=== PATIENT | female | born 1960 | race Caucasian/White ===

== ENCOUNTER 2017-01-17 00:32 | Emergency (ER) | payer OTHER ==
[2017-01-17 00:41] VITALS: BP 185/88
[2017-01-17] MEDS ORDERED: NAPROXEN 500 MG TABLET PO ONE (01:15)
[2017-01-17] MEDS ORDERED: PENICILLIN V K 250 MG TABLET. PO ONE (01:15)
[2017-01-17] MEDS ORDERED: oxyCODONE/APAP 7.5/325 1 TAB TABLET ONE (01:15)
[2017-01-17] MEDS ORDERED: NAPROXEN 500 MG TABLET ONE (01:15)
[2017-01-17] MEDS ORDERED: PENICILLIN V K 250 MG TABLET. ONE (01:15)
[2017-01-17] MEDS ORDERED: oxyCODONE/APAP 7.5/325 1 TAB TABLET PO ONE (01:15)
[2017-01-17] MEDS ORDERED: NAPR500T PO (01:17)
[2017-01-17] MEDS ORDERED: BENZ9GEL MM (01:17)
[2017-01-17] MEDS ORDERED: PENI500T PO (01:17)
--- NOTE | 2017-01-17 01:32 | ED.ADGEN ---
Past History Past Medical History: No Pertinent History Past Surgical History: Other Alcohol Use: None Drug Use: None Adult General HPI HPI Patient is a 56-year-old woman, with no significant past medical history, who presents to the emergency department with complaint of dental pain. Patient states that she had a partial root canal performed by her dentist on her right lower jaw, however due to difficulty with obtaining appropriate anesthesia, and some complications, she was referred to an oral surgeon. She states that he for she was able to follow-up with oral surgeon however, her son was involved in a serious motor vehicle accident in [place], and she has spent her time with him since this occurred. Her initial dental treatment was in October. She states that she began experiencing pain earlier today. She states that she has not yet made an appointment with the oral surgeon whom she was referred by her dentist. Patient denies any fevers or chills, any chest pain or shortness breath, any difficulty swallowing or breathing, any discharge or drainage in the mouth. No neck pain. No swelling of the face or neck. No difficulty with speech. No new injuries or inciting events. Pain is isolated to the posterior aspect of the right lower jaw. Review of Systems Review of Systems Constitutional: Denies fever or chills [] Eyes: Denies change in visual acuity, redness, or eye pain [] HENT: Denies nasal congestion or sore throat. Right lower jaw pain [] Respiratory: Denies cough or shortness of breath [] Cardiovascular: No additional information not addressed in HPI [] GI: Denies abdominal pain, nausea, vomiting, bloody stools or diarrhea [] : Denies dysuria or hematuria [] Musculoskeletal: Denies back pain or joint pain [] Integument: Denies rash or skin lesions [] Neurologic: Denies headache, focal weakness or sensory changes [] Endocrine: Denies polyuria or polydipsia [] Current Medications Current Medications Current Medications Medications (Trade) Dose Ordered Sig/Lev Start Time Stop Time Status Last Admin Dose Admin Naproxen (Naprosyn) 500 mg 1X ONCE 01/17/17 01:15 01/17/17 01:16 UNV 01/17/17 01:15 500 MG Oxycodone/ Acetaminophen (Percocet 7.5/ 325) 1 tab 1X ONCE 01/17/17 01:15 01/17/17 01:16 UNV 01/17/17 01:15 1 TAB Penicillin V Potassium (Veetid) 500 mg 1X ONCE 01/17/17 01:15 01/17/17 01:16 UNV 01/17/17 01:15 500 MG Allergies Allergies Allergies Coded Allergies Type Severity Reaction Last Updated Verified No Known Allergies Allergy Unknown 01/17/17 Yes Physical Exam Physical Exam Constitutional: Well developed, well nourished, no acute distress, non-toxic appearance. [] HENT: Normocephalic, atraumatic, bilateral external ears normal, oropharynx moist, no oral exudates, nose normal. Patient with dental caries, and absence of premolars, patient with tenderness palpation and mild surrounding gum irritation at tooth number #32, very filling noted to be in place, patient with apical tenderness, no abscess formation, induration, swelling, brawny edema or involvement of tongue or surrounding mucus membranes identified. No lymphadenopathy, no neck tenderness, no facial swelling or tenderness. Eyes: PERRLA, EOMI, conjunctiva normal, no discharge. [] Neck: Normal range of motion, no tenderness, supple, no stridor. [] Cardiovascular:Heart rate regular rhythm, no murmur, S1, S2, no rubs or gallops. [] Lungs & Thorax: Bilateral breath sounds clear to auscultation, no wheezing, rhonchi, rales. [] Abdomen: Bowel sounds normal, soft, no tenderness, no masses, no pulsatile masses. [] Neurologic: Alert and oriented X 3, normal motor function, normal sensory function, no focal deficits noted. [] Psychologic: Affect normal, judgement normal, mood normal. [] Current Patient Data Vital Signs Vital Signs Date Time Temp Pulse Resp B/P (MAP) Pulse Ox O2 Delivery O2 Flow Rate FiO2 01/17/17 01:15 20 98 Room Air 01/17/17 00:41 98.1 74 EKG EKG Not indicated. [] Radiology/Procedures Radiology/Procedures [] Course & Med Decision Making Course & Med Decision Making Pertinent Labs and Imaging studies reviewed. (See chart for details) Patient well-appearing, pain isolated to tooth #32, where patient is noted to have a temporary filling in place. Mild surrounding irritation to the gum, patient does have gingivitis, there is no evidence of abscess formation or acute infection. I did discuss with patient that I will be unable to provide much assistance for her tonight, as she will require dental extraction for definitive treatment. Thus dental block, patient states that she required "so much medication it made me sick", with inadequate anesthesia established by her primary dentist, therefore will forego attempts a dental block at this time. Patient states that she understands, and has plans to follow-up with the oral surgeon to she was referred. She does have his card at home. Patient is agreeable to trialing a single dose of Percocet in the ED, along with naproxen, and penicillin, to be discharged home with a prescription for penicillin, naproxen, to continue Anbesol which she states she was using without much success. No indication requiring additional imaging or evaluation at this time. Patient tolerated oral medications the ED without issue, was given clear and detailed return instructions with which she voiced understanding and agreement. Importance of following up tomorrow again discussed, patient discharged home in stable condition with her family with plan and precautions as above. Final Impression Final Impression [] Problems: Dragon Disclaimer Dragon Disclaimer This electronic medical record was generated, in whole or in part, using a voice recognition dictation system. Departure: Impression: Primary Impression: Pain due to dental caries Disposition: HOME, SELF-CARE Condition: IMPROVED Scripts Benzocaine (ANBESOL) 9 Gm Gel..gram. 9 GM MM PRN QID Y for PAIN, #1 EACH Prov: ROBERT CARRION DO 01/17/17 Naproxen (NAPROSYN) 500 Mg Tablet 1 TAB PO BID Y for PAIN, #10 TAB 1 Refill Prov: ROBERT CARRION DO 01/17/17 Penicillin V Potassium (PENICILLIN V POTASSIUM) 500 Mg Tablet 1 TAB PO QID, #40 TAB Prov: ROBERT CARRION DO 01/17/17 ROBERT CARRION DO Jan 17, 2017 01:32
== END 2017-01-17 01:30 | disposition home or self-care (01) ==
LOC: ER 00:32
DX: K02.9 Dental caries, unspecified (principal)
CPT/HCPCS: 99284

== ENCOUNTER 2017-06-25 17:53 | Emergency (ER) | payer OTHER ==
[~2017-06-25] VITALS: Ht 157.5 cm; Wt 70.3 kg
[~2017-06-25 17:53] MED LIST: BENZ9GEL MM; NAPR-683 PO; PENI500T PO
[2017-06-25] MEDS ORDERED: KETOROLAC 30 MG/ML VIAL. IM ONE (18:15)
[2017-06-25] MEDS ORDERED: ONDANSETRON ODT 4 MG TAB.RAPDIS PO ONE (18:15)
[2017-06-25] MEDS ORDERED: HYDROmorphone PF 1 MG/ML DISP.SYRIN IM ONE (18:30)
[2017-06-25] MEDS ORDERED: TRAM-48 PO (19:14)
[2017-06-25] MEDS ORDERED: NAPR500T4 PO (19:14)
--- NOTE | 2017-06-25 19:14 | PHYS DOC ---
Past History Past Medical History: No Pertinent History Past Surgical History: Other Alcohol Use: None Drug Use: None Adult General Chief Complaint Chief Complaint: HIP PAIN HPI HPI Patient is a 56-year-old female who presents here today complaining of left hip pain for "quite a while now ". Patient reports that she was diagnosed with bursitis and sciatica to her left hip over the last several days her pain is been getting much worse. Patient denies any recent trauma. Patient denies any recent fevers shakes chills nausea vomiting diarrhea cough cold rhinorrhea. Patient reports she has no past medical history of high blood pressure diabetes lung liver or kidney problems. Patient reports no tobacco alcohol. Patient does not smoke drink or do any drugs. Patient is allergic to any medications. Patient reports that she has had a right total hip replacement in 2013 with recent revision. Patient denies any increased exertion or trauma. Patient reports that she has been seeing her physician secondary to discomfort and he has been prescribed gabapentin to her without any significant improvement. Patient presents ER today seeking assistance with her discomfort until she can follow up further with her primary care physician. Review of systems: Constitutional: Denies fever or chills Eyes: Denies change in visual acuity, redness, or eye pain HENT: Denies nasal congestion or sore throat Respiratory: Denies cough or shortness of breath All other systems were reviewed and found to be within normal limits, except as documented in this note. Physical exam: Constitutional: Well developed, well nourished, no acute distress, non-toxic appearance. HENT: Normocephalic, atraumatic, bilateral external ears normal, nose normal. Eyes: PERRLA, EOMI, conjunctiva normal, no discharge. Neck: Normal range of motion, no tenderness, supple, no stridor. Cardiovascular: Heart rate regular rhythm, Lungs & Thorax: Bilateral breath sounds clear to auscultation Abdomen: No abdominal distention. Skin: Warm, dry, no erythema, no rash. Back: Normal spinal curvature Extremities: No tenderness, no cyanosis, no clubbing, ROM intact, no edema. Neurologic: Alert and oriented X 3, normal motor function, normal sensory function, no focal deficits noted. Psychologic: Affect normal, judgement normal, mood normal. Patient's ER physical exam was most remarkable: No hernia defect. Patient is tenderness to palpation to her left groin area patient's full range of motion to her left hip however she does appear to have discomfort with any flexion abduction or external rotation. There is no warmth or erythema. There is no rash noted. There is no deformity. Left hip as interpreted by ER physician reveals: No acute fracture or dislocation. Assessment and plan: 1. 48-year-old female who presents here today with left hip pain. Patient is currently on Neurontin without any improvement. Patient is requesting assistance with pain management until she is able see her primary care physician. Patient has no recent trauma. Patient's x-ray of her left hip reveals no fracture or dislocation. There are no lytic lesions identified. There does seem to be decreased joint space consistent with arthritis. Patient will be given pain medicines in the ED and will be discharged home with analgesic medication to assist her until she is able follow-up for further outpatient evaluation. Current Medications Current Medications Current Medications Medications (Trade) Dose Ordered Sig/Lev Start Time Stop Time Status Last Admin Dose Admin Hydromorphone HCl (Dilaudid) 0.5 mg 1X ONCE 06/25/17 18:30 06/25/17 18:31 DC 06/25/17 18:36 0.5 MG Ketorolac Tromethamine (Toradol) 30 mg 1X ONCE 06/25/17 18:15 06/25/17 18:17 DC 06/25/17 18:35 30 MG Ondansetron HCl (Zofran Odt) 4 mg 1X ONCE 06/25/17 18:15 06/25/17 18:17 DC 06/25/17 18:35 4 MG Allergies Allergies Allergies Coded Allergies Type Severity Reaction Last Updated Verified No Known Allergies Allergy Unknown 01/17/17 Yes Current Patient Data Vital Signs Vital Signs Date Time Temp Pulse Resp B/P (MAP) Pulse Ox O2 Delivery O2 Flow Rate FiO2 06/25/17 18:36 16 99 06/25/17 18:06 98.0 79 Room Air EKG EKG [] Radiology/Procedures Radiology/Procedures [] Course & Med Decision Making Course & Med Decision Making Pertinent Labs and Imaging studies reviewed. (See chart for details) [] Dragon Disclaimer Dragon Disclaimer This electronic medical record was generated, in whole or in part, using a voice recognition dictation system. Departure Departure: Impression: Primary Impression: Hip pain, left Disposition: HOME, SELF-CARE Condition: IMPROVED Referrals: MARIANELA MORENO (PCP) Patient Instructions: Arthritis, Nonspecific, Groin Strain, Hip Pain Scripts Tramadol Hcl (ULTRAM) 50 Mg Tablet 50 MG PO PRN Q6HRS Y for PAIN, #20 TAB Prov: ABELARDO IVERSON MD 06/25/17 Naproxen (NAPROXEN) 500 Mg Tablet 1 TAB PO BID, #20 TAB Prov: ABELARDO IVERSON MD 06/25/17 ABELARDO IVERSON MD Jun 25, 2017 19:14
[2017-06-25 19:36] VITALS: BP 134/80
--- NOTE | 2017-06-26 08:19 | RAD ---
Pelvis and two-view left hip History: Leg pain AP view of the pelvis obtained as well as AP and frog-leg views left hip There is been prior right hip total arthroplasty. There is deformity of the inferior pubic ramus and the right consistent with old trauma. A left femoral acetabular relationship is normal.. Impression: No acute findings.
== END 2017-06-25 19:37 | disposition home or self-care (01) ==
LOC: ER 17:53
DX: M25.552 Pain in left hip (principal); Z96.641 Presence of right artificial hip joint
CPT/HCPCS: 73502; 96372; 99284; J1170; J1885; Q0162

== ENCOUNTER 2017-10-14 07:33 | Emergency (ER) | payer OTHER ==
[~2017-10-14] VITALS: Ht 157.5 cm; Wt 79.2 kg
[~2017-10-14 07:33] MED LIST changes: +NAPR-514 PO; +TRAM-48 PO
[2017-10-14] MEDS ORDERED: IV NORMAL SALINE 1,000ML 1,000 ML IV SCH (07:46)
[2017-10-14] MEDS ORDERED: 0.9 % SODIUM CHLORIDE 10 ML DISP.SYRIN. IV PRN (08:00)
--- NOTE | 2017-10-14 08:00 | PHYS DOC ---
Past History Past Medical History: No Pertinent History, Depression, Hypertension Past Surgical History: Other Additional Past Surgical Histo: knee surgery, right hip replacement 2 Smoking: Non-smoker Alcohol Use: Occasionally Drug Use: None Adult General Chief Complaint Chief Complaint: FLANK PAIN [facility] HPI Patient is a pleasant 57-year-old female with a known history of hypertension and depression on medications presents with left flank pain that began as a dull ache 1 week ago and is progressively gotten worse. Patient admits she noted some mild hematuria with some increasing darkness to her urine. She began to take cranberry juice in an effort to treat the symptoms. Pain is just gotten progressively worse it is in the left flank with some radiation to the lower portion of left flank. It is described as sharp and stabbing with a dull ache is residual hard to get comfortable from. Patient admits to no fevers, no UTI symptoms, no nausea no vomiting or diarrhea just she cannot comfortable. Nothing really makes it worse or better. Does have a history of sciatica but this feels different. Patient denies any trauma, denies any travel outside the country. Patient denies any rashes, weight loss, night sweats Review of Systems Review of Systems Constitutional: Denies fever or chills [] Eyes: Denies change in visual acuity, redness, or eye pain [] HENT: Denies nasal congestion or sore throat [] Respiratory: Denies cough or shortness of breath [] Cardiovascular: No additional information not addressed in HPI [] GI: Positive for left flank pain negative for nausea, vomiting, diarrhea, loose stools. : Positive for hematuria and dark urine negative for dysuria urgency or frequency Musculoskeletal: Denies back pain or joint pain [] Integument: Denies rash or skin lesions [] Neurologic: Denies headache, focal weakness or sensory changes [] Endocrine: Denies polyuria or polydipsia [] All other systems were reviewed and found to be within normal limits, except as documented in this note. Current Medications Current Medications Current Medications Medications (Trade) Dose Ordered Sig/Lev Start Time Stop Time Status Last Admin Dose Admin Morphine Sulfate (Morphine 4mg Syringe) 4 mg PRN Q15MIN PRN 10/14/17 08:00 10/15/17 07:59 Ondansetron HCl (Zofran) 4 mg 1X ONCE 10/14/17 08:15 10/14/17 08:16 Sodium Chloride (Normal Saline Flush) 10 ml QSHIFT PRN 10/14/17 08:00 Allergies Allergies Allergies Coded Allergies Type Severity Reaction Last Updated Verified No Known Allergies Allergy Unknown 01/17/17 Yes Physical Exam Physical Exam Constitutional: Well developed, well nourished, no acute distress, non-toxic appearance. [] HENT: Normocephalic, atraumatic, bilateral external ears normal, oropharynx dry mucous membranes, no oral exudates, nose normal. [] Eyes: PERRLA, EOMI, conjunctiva normal, no discharge. [] Neck: Normal range of motion, no tenderness, supple, no stridor. [] Cardiovascular:Heart rate regular rhythm, no murmur [] Lungs & Thorax: Bilateral breath sounds clear to auscultation [] Abdomen: Bowel sounds normal, soft, no tenderness, no masses, no pulsatile masses. Slight tenderness to the left flank no obvious signs of trauma or ecchymoses. [] Skin: Warm, dry, no erythema, no rash. [] Back: No tenderness, slight CVA tenderness on the left. [] Extremities: No tenderness, no cyanosis, no clubbing, ROM intact, no edema. [] Neurologic: Alert and oriented X 3 Psychologic: Affect normal, judgement normal, mood normal. [] EKG EKG []EKG read by me at 8:08 AM dosage heart rate of 87 normal sinus rhythm there is a P wave that is normal there is QRS patient has a CA interval of 142 which is normal, QRS width of 100 which is normal, QTC is 472 which is normal for age may be mildly prolonged. Radiology/Procedures Radiology/Procedures [] [address] [place] [id number] IMAGING REPORT Signed PATIENT: REGGIE NGUYEN ACCOUNT: [id number] : 1960 LOCATION: ER AGE: 57 SEX: F EXAM STATUS: REG ER ORD. PHYSICIAN: REZA MELISSA MD REASON: flank pain PROCEDURE: CT ABDOMEN PELVIS WO CONTRAST CT study of the abdomen and pelvis without contrast Clinical indications: Left flank pain for 3 days radiating into the left lower quadrant. Hematuria. History of hysterectomy in 2009. PQRS compliance Statement One or more of the following individualized dose reduction techniques were utilized for this study: 1. Automated exposure control 2. Adjustment of the mA and/or kV according to patient size 3. Use of iterative reconstruction technique COMPARISON: None available. FINDINGS: Hepatic cysts are seen. The spleen is not enlarged. The spleen is homogeneous. 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 The gallbladder appears normal. No extrahepatic biliary ductal dilatation is seen. No adrenal mass is evident. A left renal cyst is seen measuring 3 cm. Punctate left renal stone is seen. Mild left-sided hydronephrosis is seen. This is due to 3 small stones within the proximal left ureter measuring 2 mm in size. These are seen within the proximal left ureter just distal to the UPJ. No stone of the upper urinary tract is seen on the right side. There is a small cyst of the right kidney. The distal ureters and urinary bladder are partially obscured due to streaking artifact from a right hip prosthesis. No focal aneurysmal dilatation of the abdominal aorta is seen. No enlarged abdominal or pelvic lymphadenopathy is evident. Sigmoid diverticulosis is seen without diverticulitis. No obstructive bowel pattern is evident. No free air or free fluid or mesenteric edema is seen. No lung base consolidation is evident. Nonunited old fracture of the inferior pubic ramus is seen on the right side. No osteolytic process is seen. 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 IMPRESSION: Mild left-sided hydronephrosis due to 3 small 2 mm stones within the proximal left ureter just distal to the UVJ. Electronically signed by: Devin Norton MD (10/14/2017 8:54 AM) [id number] DICTATED AND SIGNED BY: DEVIN NORTON MD DATE: 10/14/17 0841 CC: REZA MELISSA MD; MARIANELA MORENO ~ Course & Med Decision Making Course & Med Decision Making Pertinent Labs and Imaging studies reviewed. (See chart for details) []He is a pleasant 57-year-old female presents with left flank pain has become briefly gotten worse in the last week. She has a history of dark urine with some mild hematuria differential diagnosis includes but not limited to kidney stone, pyelonephritis, UTI, rhabdomyolysis, lower back pain, herpes zoster, : Plan is to complete a CT with contrast of the abdomen and pelvis, click the urine, CBC, CMP provide some discomfort relief Laboratory Tests Test 10/14/17 08:03 White Blood Count 8.9 x10^3/uL (4.0-11.0) Red Blood Count 4.96 x10^6/uL (3.50-5.40) Hemoglobin 13.9 g/dL (12.0-15.5) Hematocrit 41.7 % (36.0-47.0) Mean Corpuscular Volume 84 fL (79-100) Mean Corpuscular Hemoglobin 28 pg (25-35) Mean Corpuscular Hemoglobin Concent 33 g/dL (31-37) Red Cell Distribution Width 14.6 % (11.5-14.5) H Platelet Count 312 x10^3/uL (140-400) Neutrophils (%) (Auto) 57 % (31-73) Lymphocytes (%) (Auto) 29 % (24-48) Monocytes (%) (Auto) 6 % (0-9) Eosinophils (%) (Auto) 7 % (0-3) H Basophils (%) (Auto) 1 % (0-3) Neutrophils # (Auto) 5.1 x10^3uL (1.8-7.7) Lymphocytes # (Auto) 2.5 x10^3/uL (1.0-4.8) Monocytes # (Auto) 0.5 x10^3/uL (0.0-1.1) Eosinophils # (Auto) 0.7 x10^3/uL (0.0-0.7) Basophils # (Auto) 0.1 x10^3/uL (0.0-0.2) Sodium Level 142 mmol/L (136-145) Potassium Level 3.9 mmol/L (3.5-5.1) Chloride Level 104 mmol/L (98-107) Carbon Dioxide Level 29 mmol/L (21-32) Anion Gap 9 (6-14) Blood Urea Nitrogen 16 mg/dL (7-20) Creatinine 0.8 mg/dL (0.6-1.0) Estimated GFR (Cockcroft-Gault) 73.4 Glucose Level 97 mg/dL (70-99) Calcium Level 9.0 mg/dL (8.5-10.1) Total Bilirubin 0.6 mg/dL (0.2-1.0) Direct Bilirubin 0.1 mg/dL (0.0-0.2) Aspartate Amino Transferase (AST) 15 U/L (15-37) Alanine Aminotransferase (ALT) 18 U/L (14-59) Alkaline Phosphatase 109 U/L (46-116) Creatine Kinase 64 U/L (26-192) Creatine Kinase MB (Mass) < 0.5 ng/mL (0.0-3.6) Creatine Kinase MB Relative Index 0.8 % (0-4) Troponin I Quantitative < 0.017 ng/mL (0-0.055) Total Protein 7.2 g/dL (6.4-8.2) Albumin 3.6 g/dL (3.4-5.0) Lipase 259 U/L (73-393) Patient's urinalysis is still pending at this time time is now 9:15 AM CBC, CMP, lipase and troponin are all negative, patient is resting quietly waiting for the past results. Since urinalysis shows some red blood cells and some white blood cells with occasional epithelia cells and a few bacteria this is likely not an infected stone. Patient has negative white count CBC is unremarkable signs of infection. CT scan results demonstrate 2 small 2 mm left ureteral stones with no evidence of inflammation but there is some mild hydronephrosis. Given patient's kidney stones and flank pain without fevers I will wait for the urinalysis to ensure that she's not having a UTI and infected kidney stone provider appropriate treatments and follow-up with urology. Impression: Left kidney stone Pretty Disclaimer [place] Disclaimer This electronic medical record was generated, in whole or in part, using a voice recognition dictation system. Departure Departure: Impression: Primary Impression: Kidney stone Disposition: 01 HOME, SELF-CARE Condition: STABLE Referrals: MARIANELA MORENO (PCP) Patient Instructions: Diet for Kidney Stones, Kidney Stones Additional Instructions: discharge: I've spoken with the patient and/or caregivers. I've explained the patient's condition, diagnosis and treatment plan based on information available to me at this time. I've answered the patient's and/or caregivers questions and addressed any concerns. The patient and/or caregivers have a good understanding the patient's diagnosis, condition and treatment plan as can be expected at this point. Vital signs have been stabilized. The patient's condition is stable for discharge from the emergency department. The patient will pursue further outpatient evaluation with her primary care provider or other designated consulting physician as outlined in the discharge instructions. Patient and/or caregivers are agreeable to this plan of care and follow-up instructions have been explained in detail. The patient and/or caregivers have received these instructions in written format and expressed understanding of these discharge instructions. The patient and her caregivers are aware that if any significant change in condition or worsening of symptoms should prompt him to immediately return to this of the closest emergency department. If an emergent department is not readily available I would encourage him to call 911. Scripts Ondansetron (ZOFRAN ODT) 4 Mg Tab.rapdis 1 TAB SL Q8HRS, #15 TAB Prov: REZA MELISSA MD 10/14/17 Naproxen Sodium (NAPROXEN SODIUM) 275 Mg Tablet 275 MG PO BID for 7 Days, #14 TAB Prov: REZA MELISSA MD 10/14/17 Hydrocodone Bit/Acetaminophen (HYDROCODONE-APAP 5-325 ) 1 Each Tablet 1 TAB PO PRN Q6HRS Y for PAIN for 5 Days, TAB 0 Refills Prov: REZA MELISSA MD 10/14/17 REZA MELISSA MD Oct 14, 2017 08:00
[2017-10-14] MEDS ORDERED: ONDANSETRON PF 4 MG/2 ML VIAL. IV ONE (08:15)
[2017-10-14 08:16] LABS: BASO # 0.1 x10^3/uL (0.0-0.2); BASO % 1 % (0-3); EOS # 0.7 x10^3/uL (0.0-0.7); EOS % 7 % (0-3); HEMATOCRIT 41.7 % (36.0-47.0); HEMOGLOBIN 13.9 g/dL (12.0-15.5); LYMPH # 2.5 x10^3/uL (1.0-4.8); LYMPH % 29 % (24-48); MEAN CORPUSCULAR HEMOGLOBIN 28 pg (25-35); MEAN CORPUSCULAR HGB CONC 33 g/dL (31-37); MEAN CORPUSCULAR VOLUME 84 fL (79-100); MONO # 0.5 x10^3/uL (0.0-1.1); MONO % 6 % (0-9); NEUT # 5.1 x10^3uL (1.8-7.7); NEUT % 57 % (31-73); PLATELET COUNT 312 x10^3/uL (140-400); RED BLOOD COUNT 4.96 x10^6/uL (3.50-5.40); RED CELL DISTRIBUTION WIDTH 14.6 % (11.5-14.5); WHITE BLOOD COUNT 8.9 x10^3/uL (4.0-11.0)
[2017-10-14] MEDS: MORPHINE SULFATE 4 MG/ML DISP.SYRIN. IV/SQ PRN ×2 (08:16→08:46)
[2017-10-14 08:54] LABS: ALBUMIN 3.6 g/dL (3.4-5.0); ALK PHOS 109 U/L (46-116); ALT (SGPT) 18 U/L (14-59); ANION GAP 9 (6-14); AST (SGOT) 15 U/L (15-37); BLOOD UREA NITROGEN 16 mg/dL (7-20); CARBON DIOXIDE 29 mmol/L (21-32); CHLORIDE 104 mmol/L (98-107); CREATININE 0.8 mg/dL (0.6-1.0); DIRECT BILIRUBIN 0.1 mg/dL (0.0-0.2); GFR 73.4; GLUCOSE 97 mg/dL (70-99); LIPASE 259 U/L (73-393); POTASSIUM 3.9 mmol/L (3.5-5.1); SODIUM 142 mmol/L (136-145); TOTAL BILIRUBIN 0.6 mg/dL (0.2-1.0); TOTAL PROTEIN 7.2 g/dL (6.4-8.2)
--- NOTE | 2017-10-14 08:57 | RAD ---
CT study of the abdomen and pelvis without contrast Clinical indications: Left flank pain for 3 days radiating into the left lower quadrant. Hematuria. History of hysterectomy in 2009. PQRS compliance Statement One or more of the following individualized dose reduction techniques were utilized for this study: 1. Automated exposure control 2. Adjustment of the mA and/or kV according to patient size 3. Use of iterative reconstruction technique COMPARISON: None available. FINDINGS: Hepatic cysts are seen. The spleen is not enlarged. The spleen is homogeneous. 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 The gallbladder appears normal. No extrahepatic biliary ductal dilatation is seen. No adrenal mass is evident. A left renal cyst is seen measuring 3 cm. Punctate left renal stone is seen. Mild left-sided hydronephrosis is seen. This is due to 3 small stones within the proximal left ureter measuring 2 mm in size. These are seen within the proximal left ureter just distal to the UPJ. No stone of the upper urinary tract is seen on the right side. There is a small cyst of the right kidney. The distal ureters and urinary bladder are partially obscured due to streaking artifact from a right hip prosthesis. No focal aneurysmal dilatation of the abdominal aorta is seen. No enlarged abdominal or pelvic lymphadenopathy is evident. Sigmoid diverticulosis is seen without diverticulitis. No obstructive bowel pattern is evident. No free air or free fluid or mesenteric edema is seen. No lung base consolidation is evident. Nonunited old fracture of the inferior pubic ramus is seen on the right side. No osteolytic process is seen. 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 IMPRESSION: Mild left-sided hydronephrosis due to 3 small 2 mm stones within the proximal left ureter just distal to the UVJ. Electronically signed by: David Norton MD (10/14/2017 8:54 AM) [id number]
[2017-10-14] MEDS ORDERED: ONDA4TAB10 SL (09:21)
[2017-10-14] MEDS ORDERED: NAPR275T59 PO (09:21)
[2017-10-14] MEDS ORDERED: HYDR-2758 PO (09:21)
[2017-10-14] MEDS ORDERED: HYDROmorphone PF 2 MG/ML VIAL IV ONE (10:00)
[2017-10-14 10:04] LABS: BACTERIA,URINE FEW /HPF (0-FEW); BILIRUBIN,URINE NEG (NEG); CLARITY,URINE CLOUDY; COLOR,URINE STRAW; GLUCOSE,URINE NEG (NEG); NITRITE,URINE NEG (NEG); RBC,URINE >40 /HPF (0-2); SQUAMOUS EPITHELIAL CELL,UR MOD /LPF; UROBILINOGEN,URINE 0.2 mg/dL (0.2 mg/dL); WBC,URINE OCC /HPF (0-4)
[2017-10-14 10:30] VITALS: BP 130/87
--- NOTE | 2017-10-14 13:01 | EKG ---
[address] [address] Test Date: 2017-10-14 Test Time: 08:08:32 Pat Name: REGGIE NGUYEN Department: Room: Gender: F [employer]er: LEELA : 1960 Requested By: REZA MELISSA Order Number: [id number] Reading MD: Liborio Perez MD Measurements Intervals [place] Rate: 87 P: 51 RI: 142 QRS: 15 QRSD: 100 T: 33 QT: 392 QTc: 472 Interpretive Statements SINUS RHYTHM Electronically Signed On 10-17-2017 14:09:29 CDT by Liborio Perez MD
== END 2017-10-14 10:47 | disposition home or self-care (01) ==
LOC: ER 07:33
DX: N20.0 Calculus of kidney (principal); I10 Essential (primary) hypertension; F32.9 Major depressive disorder, single episode, unspecified
CPT/HCPCS: 36415; 74176; 80048; 80076; 81001; 82553; 83690; 84484; 85025; 87086; 93005; 96361; 96374; 96375; 99285; J2270; J2405; J3010; J7030

== ENCOUNTER 2017-10-27 17:30 | Emergency (ER) | payer OTHER ==
[~2017-10-27] VITALS: Ht 157.5 cm; Wt 72.6 kg
[~2017-10-27 17:30] MED LIST changes: +HYDR-2758 PO; +NAPR275T59 PO; +ONDA4TAB10 SL
--- NOTE | 2017-10-27 17:43 | PHYS DOC ---
Past History Past Medical History: Depression, Hypertension, Kidney Stones Past Surgical History: Hip Replacement, Hysterectomy, Other Additional Past Surgical Histo: knee surgery, right hip replacement 2 Smoking: Non-smoker Alcohol Use: Occasionally Drug Use: None Adult General Chief Complaint Chief Complaint: ABDOMINAL PAIN [facility] HPI 57-year-old female patient states she she had left flank pain and was seen in this emergency room 2 weeks ago with diagnose of 3 small size kidney stones. Patient states she had pain off and on with intermittent episodes of hematuria for the last 2 weeks and today her pain became constant in the left flank with radiation to left lower quadrant as a sharp pain and rated her pain 9/10. Patient complaining of 8-9 episodes of nonbloody vomiting without diarrhea and fever and chills. Patient states she had hematuria this morning that resolved. Patient denies dysuria or frequency or decrease of urine output, chest pain, shortness of breath. Patient states she was not instructed to follow-up with a urologist. Patient states she had kidney stone 2 years ago that passed spontaneously without problem. Review of Systems Review of Systems Constitutional: Denies fever or chills [] Eyes: Denies change in visual acuity, redness, or eye pain [] HENT: Denies nasal congestion or sore throat [] Respiratory: Denies cough or shortness of breath [] Cardiovascular: No additional information not addressed in HPI [] GI: Reports abdominal pain, nausea, vomiting, denies bloody stools or diarrhea [ ] : Denies dysuria or frequency, reports flank pain and hematuria [] Musculoskeletal: Denies back pain or joint pain [] Integument: Denies rash or skin lesions [] Neurologic: Denies headache, focal weakness or sensory changes [] Endocrine: Denies polyuria or polydipsia [] All other systems were reviewed and found to be within normal limits, except as documented in this note. Allergies Allergies Allergies Coded Allergies Type Severity Reaction Last Updated Verified morphine Allergy Unknown Rash 10/27/17 Yes Physical Exam Physical Exam Constitutional: Well developed, well nourished, moderate distress, non-toxic appearance. [] HENT: Normocephalic, atraumatic, dry oral mucosa Eyes: PERRLA, EOMI, conjunctiva normal, no discharge. [] Neck: Normal range of motion, no tenderness, supple, no stridor. [] Cardiovascular: Tachycardia, no murmur [] Lungs & Thorax: Bilateral breath sounds clear to auscultation [] Abdomen: Bowel sounds normal, soft, left lower quadrant tenderness and guarding , no masses, no pulsatile masses. [] Skin: Warm, dry, no erythema, no rash. [] Back: No tenderness, left CVA tenderness[] Extremities: No tenderness, no cyanosis, no clubbing, ROM intact, no edema. [] Neurologic: Alert and oriented X 3, normal motor function, normal sensory function, no focal deficits noted. [] Psychologic: Affect normal, judgement normal, mood normal. [] EKG EKG [] Radiology/Procedures Radiology/Procedures [] [place] [id number] IMAGING REPORT Signed PATIENT: REGGIE NGUYEN ACCOUNT: [id number] : 1960 LOCATION: ER AGE: 57 SEX: F EXAM STATUS: REG ER ORD. PHYSICIAN: LOKI SON MD REASON: left flank pain PROCEDURE: CT ABDOMEN PELVIS WO CONTRAST CT ABDOMEN PELVIS WO CONTRAST Indication: LLQ Abdominal pain and left flank pain
Hx of kidney stones and appendectomy
Sent CT from 10/2017 for comparison
.. Exposure: One or more of the following individualized dose reduction techniques were utilized for this examination: 1. Automated exposure control 2. Adjustment of the mA and/or kV according to patient size 3. Use of iterative reconstruction technique. Comparison: October 14, 2017 Contrast: None Mild linear atelectasis or fibrosis in the lung bases. No evidence of pneumoperitoneum. Small low-density liver lesions are identified, appears similar as prior study. Spleen unremarkable. Area of fatty density in the pancreas, may represent a lipoma, unchanged. No acute peripancreatic inflammatory changes. No adrenal mass. Moderate left hydronephrosis and ureteric dilatation to the distal left ureter, where there is a 4 mm calculus. Inflammatory stranding around the left kidney, collecting system and left ureter could be postobstructive or due to superimposed acute inflammation or infection. There are a couple of additional calculi in the left renal pelvis and left renal lower pole. No evidence of right urolithiasis or obstruction. Note that the distal right ureter is obscured by metal artifact. Low-density lesion of the left kidney measures 6 Hounsfield units compatible with a cyst and is similar to the prior study. No calcified gallstone. The aorta is nonaneurysmal. Small retroperitoneal aortocaval lymph nodes are identified, likely reactive. No bowel obstruction. Mild retained stool throughout the colon. No evidence of acute colitis. Appendix is not confidently visualized. Low-density lesion identified in the right pelvis measures about 17 mm, was also seen previously but is slightly larger today. This may represent a small ovarian cyst. Pelvic structures are secured by artifact from a right hip replacement. Degenerative changes of the spine are again noted. IMPRESSION: 1. There is now a moderately obstructive calculus in the distal left ureter. There is moderate inflammatory type stranding around the left kidney, left ureter and left paracolic gutter could be postobstructive or due to a superimposed infection/pyelonephritis. A couple of additional calculi are seen in the left kidney. 2. Small low-density lesion of the right pelvis measures slightly larger, may represent an ovarian cyst. Pelvic ultrasound could further evaluate. Electronically signed by: Jim Fuentes MD (10/27/2017 6:48 PM) [facility] Course & Med Decision Making Course & Med Decision Making Pertinent Labs and Imaging studies are pending. Evaluation of patient in ER showed 57-year-old female patient presented to ER with episodes of nausea and vomiting and constant left flank pain with history of diagnosed UV junction several stone with marked moderate hydronephrosis 2 weeks ago in this hospital. Patient had tachycardia in moderate distress of pain with CVA and left lower quadrant tenderness. Labs and CT of abdomen and pelvis is pending. IV fluid, Zofran and fentanyl was ordered. Patient care transferred to Dr. De La Cruz at 1800. ER M.D. attending note Dr. Jim De La Cruz Care assumed by me at 1800. Upon my reevaluation patient's pain is well controlled and she is well-appearing in no acute distress. Exam is unremarkable except for mild left CVA tenderness with no focal abdominal or pelvic tenderness. Vital signs unremarkable. Toradol 15 mg IV added to regimen. Initial urinalysis clean catch specimen consistent with contamination so this was repeated with a straight catheter urinalysis negative for infection. Patient does have a mildly elevated white blood cell count 14.6 with no bands. She is nontoxic appearing with no fever and unremarkable vital signs. CT shows no evidence of the 2 mm stones which were in her proximal left ureter with mild Morrison previously, but there is evidence of a single 4 mm stone in the distal left ureter with moderate Morrison. Remainder of labs unremarkable. Patient hydrated in ED and her pain continues to be well controlled on multiple re- evaluations. History workup and results discussed with Dr. Delacruz, on-call for urology at [facility]. He is aware the history and findings and agrees with NSAIDs outpatient pain control and close follow-up in the office with him. He does request Flomax and a dose will be given in the ED. [Pack 4 Tylenol with codeine will be dispensed for the patient as well as a prescription for Bernard. Patient's were to take ibuprofen every 6 hours and use Bernard as needed for breakthrough pain. She will call urology at [phone] in the morning for an appointment. Patient is aware that if her symptoms persist or worsen urology will arrange for her to get in for an office visit more immediately. No further workup or treatment indicated at this time, Patient and significant other agree with outpatient follow-up and strict return precautions given Dragon Disclaimer Dragon Disclaimer This electronic medical record was generated, in whole or in part, using a voice recognition dictation system. Departure Departure: Impression: Primary Impression: Left flank pain Additional Impressions: Ureteral colic Ureteral stone Pelvic mass in female Disposition: 01 HOME, SELF-CARE Condition: IMPROVED Referrals: MARIANELA MORENO (PCP) DUC DELACRUZ MD Patient Instructions: Ureteral Colic Additional Instructions: As we discussed, you have a 4 mm kidney stone in your left ureter near your bladder. You have no evidence of infection in your urine. Rest and drink plenty of fluids. Take ibuprofen every 6 hours as needed for discomfort and then used Tylenol with Codeine or Bernard as prescribed , one pill every 4-6 hours as needed for any persistent pain uncontrolled by the anti-inflammatory medication ibuprofen. Take Flomax once a day as prescribed. Call the office of Dr. Duc Delacruz, the urologist, tomorrow morning at [phone] to arrange an appointment for the next 1-2 days. Clarify with office staff that the urologist offered to get you seen more immediately if your pain persists or has worsened. If necessary return to the emergency Department immediately for new severe or worsening symptoms There was an incidental finding on your CAT scan of what appeared to be a pelvic cyst on the right which is suspected to be a small ovarian cyst. Follow- up with your primary care physician and your [employer] [facility] doctor for further workup for definitive diagnosis and treatment as needed. Scripts Tamsulosin Hcl (FLOMAX) 0.4 Mg Cap.er.24h 1 CAP PO DAILY, #10 CAP 11 Refills Prov: JIM DE LA CRUZ MD 10/27/17 Hydrocodone Bit/Acetaminophen (NORCO 5-325 TABLET) 1 Each Tablet 1 TAB PO PRN Q6HRS Y for PAIN, #16 TAB 0 Refills Prov: JIM DE LA CRUZ MD 10/27/17 Problem Qualifiers LOKI SON MD Oct 27, 2017 17:43 JIM DE LA CRUZ MD Oct 27, 2017 20:51
[2017-10-27] MEDS ORDERED: 0.9 % SODIUM CHLORIDE 10 ML DISP.SYRIN. IV PRN (17:45)
[2017-10-27] MEDS ORDERED: ONDANSETRON PF 4 MG/2 ML VIAL. IV ONE (18:00)
[2017-10-27] MEDS ORDERED: IV NORMAL SALINE 1,000ML 1,000 ML IV SCH (18:00)
[2017-10-27 18:14] LABS: BASO # 0.1 x10^3/uL (0.0-0.2); BASO % 1 % (0-3); EOS % 0 % (0-3); HEMATOCRIT 37.9 % (36.0-47.0); HEMOGLOBIN 12.8 g/dL (12.0-15.5); LYMPH # 1.6 x10^3/uL (1.0-4.8); LYMPH % 11 % (24-48); MEAN CORPUSCULAR HEMOGLOBIN 29 pg (25-35); MEAN CORPUSCULAR HGB CONC 34 g/dL (31-37); MEAN CORPUSCULAR VOLUME 84 fL (79-100); MONO # 0.8 x10^3/uL (0.0-1.1); MONO % 6 % (0-9); NEUT % 83 % (31-73); PLATELET COUNT 333 x10^3/uL (140-400); RED CELL DISTRIBUTION WIDTH 14.2 % (11.5-14.5); WHITE BLOOD COUNT 14.6 x10^3/uL (4.0-11.0)
[2017-10-27 18:22] LABS: ALBUMIN 3.7 g/dL (3.4-5.0); ALBUMIN/GLOBULIN RATIO 0.9 (1.0-1.7); CALCIUM 9.1 mg/dL (8.5-10.1); CREATININE 1.4 mg/dL (0.6-1.0); GFR 38.5; POTASSIUM 3.5 mmol/L (3.5-5.1); TOTAL BILIRUBIN 0.8 mg/dL (0.2-1.0); TOTAL PROTEIN 7.6 g/dL (6.4-8.2)
--- NOTE | 2017-10-27 18:51 | RAD ---
CT ABDOMEN PELVIS WO CONTRAST Indication: LLQ Abdominal pain and left flank pain
Hx of kidney stones and appendectomy
Sent CT from 10/2017 for comparison
.. Exposure: One or more of the following individualized dose reduction techniques were utilized for this examination: 1. Automated exposure control 2. Adjustment of the mA and/or kV according to patient size 3. Use of iterative reconstruction technique. Comparison: October 14, 2017 Contrast: None Mild linear atelectasis or fibrosis in the lung bases. No evidence of pneumoperitoneum. Small low-density liver lesions are identified, appears similar as prior study. Spleen unremarkable. Area of fatty density in the pancreas, may represent a lipoma, unchanged. No acute peripancreatic inflammatory changes. No adrenal mass. Moderate left hydronephrosis and ureteric dilatation to the distal left ureter, where there is a 4 mm calculus. Inflammatory stranding around the left kidney, collecting system and left ureter could be postobstructive or due to superimposed acute inflammation or infection. There are a couple of additional calculi in the left renal pelvis and left renal lower pole. No evidence of right urolithiasis or obstruction. Note that the distal right ureter is obscured by metal artifact. Low-density lesion of the left kidney measures 6 Hounsfield units compatible with a cyst and is similar to the prior study. No calcified gallstone. The aorta is nonaneurysmal. Small retroperitoneal aortocaval lymph nodes are identified, likely reactive. No bowel obstruction. Mild retained stool throughout the colon. No evidence of acute colitis. Appendix is not confidently visualized. Low-density lesion identified in the right pelvis measures about 17 mm, was also seen previously but is slightly larger today. This may represent a small ovarian cyst. Pelvic structures are secured by artifact from a right hip replacement. Degenerative changes of the spine are again noted. IMPRESSION: 1. There is now a moderately obstructive calculus in the distal left ureter. There is moderate inflammatory type stranding around the left kidney, left ureter and left paracolic gutter could be postobstructive or due to a superimposed infection/pyelonephritis. A couple of additional calculi are seen in the left kidney. 2. Small low-density lesion of the right pelvis measures slightly larger, may represent an ovarian cyst. Pelvic ultrasound could further evaluate. Electronically signed by: Jim Fuentes MD (10/27/2017 6:48 PM) [facility]
[2017-10-27] MEDS ORDERED: KETOROLAC 15 MG/ML VIAL. IV ONE (19:00)
[2017-10-27 19:23] LABS: BILIRUBIN,URINE NEG (NEG); CLARITY,URINE CLOUDY; COLOR,URINE YELLOW; GLUCOSE,URINE NEG (NEG)
[2017-10-27 19:24] LABS: BACTERIA,URINE MOD /HPF (0-FEW); NITRITE,URINE NEG (NEG); RBC,URINE >40 /HPF (0-2); SQUAMOUS EPITHELIAL CELL,UR MOD /LPF; UROBILINOGEN,URINE 0.2 mg/dL (0.2 mg/dL)
[2017-10-27 20:08] VITALS: BP 141/70
[2017-10-27 20:11] LABS: BILIRUBIN,URINE NEG (NEG); CLARITY,URINE CLEAR; COLOR,URINE STRAW; GLUCOSE,URINE NEG (NEG); NITRITE,URINE NEG (NEG); UROBILINOGEN,URINE 0.2 mg/dL (0.2 mg/dL)
[2017-10-27 20:12] LABS: BACTERIA,URINE 0 /HPF (0-FEW); SQUAMOUS EPITHELIAL CELL,UR FEW /LPF
[2017-10-27] MEDS ORDERED: HYDR-971 PO (20:50)
[2017-10-27] MEDS ORDERED: TAMS0.4C97 PO (20:53)
[2017-10-27] MEDS ORDERED: TAMSULOSIN 0.4 MG CAP.ER.24H. PO ONE (21:00)
[2017-10-27] MEDS ORDERED: ACETAMINOPHEN/CODEINE 300/30MG 4TABLET STARTPACK. PO ONE (21:00)
== END 2017-10-27 21:04 | disposition home or self-care (01) ==
LOC: ER 17:30
DX: N23 Unspecified renal colic (principal); R19.00 Intra-abdominal and pelvic swelling, mass and lump, unspecified site; I10 Essential (primary) hypertension; F32.9 Major depressive disorder, single episode, unspecified; Z87.442 Personal history of urinary calculi; Z88.5 Allergy status to narcotic agent
CPT/HCPCS: 36415; 74176; 80053; 81001; 83690; 85025; 96361; 96374; 96375; 96376; 99285; J1885; J2405; J3010; J7030

== ENCOUNTER 2017-11-02 17:45 | Emergency (ER) | payer OTHER ==
[~2017-11-02] VITALS: Ht 157.5 cm; Wt 79.2 kg
[~2017-11-02 17:45] MED LIST changes: +HYDR-971 PO; +TAMS0.4C97 PO
--- NOTE | 2017-11-02 18:32 | ED.ADGEN ---
Past History Past Medical History: Depression, Hypertension, Kidney Stones Past Surgical History: Hip Replacement, Hysterectomy, Other Additional Past Surgical Histo: knee surgery, right hip replacement 2 Smoking: Non-smoker Alcohol Use: Rarely Drug Use: None Adult General Chief Complaint Chief Complaint " .. I was in here last week .. with kidney stones.. but I still hurt... and I am running a fever.." HPI HPI Patient is a 57 year old female who presents with above hx and complaints. Patient has history of previous stones. Patient reports that she has had increased pain on left flank. Patient not having episodes of fever of 102 at home. Patient complaining of chills and increased nausea.. Patient denies any history of immunosuppression. No history of travel or specific ill contacts. Patient normally follows at [place]. Patient states she's never had this much problem when passing her kidney stones in the past. Patient complaining poor intake because of nausea. Review of Systems Review of Systems Constitutional: History of fever and chills [] Eyes: Denies change in visual acuity, redness, or eye pain [] HENT: Denies nasal congestion or sore throat [] Respiratory: Denies cough or shortness of breath [] Cardiovascular: No additional information not addressed in HPI [] GI: History of left flank abdominal pain, nausea,. Denies vomiting, bloody stools or diarrhea [] : Denies dysuria or hematuria [] Musculoskeletal: Denies back pain or joint pain [] Integument: Denies rash or skin lesions [] Neurologic: Denies headache, focal weakness or sensory changes [] Endocrine: Denies polyuria or polydipsia [] All other systems were reviewed and found to be within normal limits, except as documented in this note. Family History Family History Noncontributory Current Medications Current Medications Current Medications Medications (Trade) Dose Ordered Sig/Lev Start Time Stop Time Status Last Admin Dose Admin Acetaminophen (Tylenol) 1,000 mg 1X ONCE 11/02/17 20:45 11/02/17 20:46 DC 11/02/17 20:26 1,000 MG Ceftriaxone Sodium 1 gm/ Sodium Chloride 50 ml @ 100 mls/hr 1X ONCE 11/02/17 19:00 11/02/17 19:29 DC 11/02/17 19:07 100 MLS/HR Ceftriaxone Sodium (Rocephin) 1 gm STK-MED ONCE 11/02/17 18:55 11/02/17 18:56 DC Fentanyl Citrate (Fentanyl 2ml Vial) 50 mcg 1X ONCE 11/02/17 22:00 11/02/17 22:01 DC 11/02/17 21:37 50 MCG Ketorolac Tromethamine (Toradol) 30 mg 1X ONCE 11/02/17 19:00 11/02/17 19:01 DC 11/02/17 19:02 30 MG Lactated Ringer's 1,000 ml @ 1,000 mls/hr Q1H 11/02/17 19:00 11/02/17 19:59 DC 11/02/17 19:06 1,000 MLS/HR Ondansetron HCl (Zofran) 8 mg 1X ONCE 11/02/17 19:00 11/02/17 19:01 DC 11/02/17 18:59 8 MG Sodium Chloride 50 ml @ As Directed STK-MED ONCE 11/02/17 18:55 11/02/17 18:56 DC Allergies Allergies Allergies Coded Allergies Type Severity Reaction Last Updated Verified morphine Allergy Intermediate Rash 11/02/17 Yes Physical Exam Physical Exam Constitutional: Moderately acute distress, ill in appearance. [] HENT: Normocephalic, atraumatic, bilateral external ears normal, oropharynx moist, no oral exudates, nose normal. [] Eyes: PERRLA, EOMI, conjunctiva normal, no discharge. [] Neck: Normal range of motion, no tenderness, supple, no stridor. [] Cardiovascular:Heart rate regular rhythm, no murmur [] Lungs & Thorax: Bilateral breath sounds clear to auscultation [] Abdomen: Bowel sounds decreased. Soft, left flank tenderness, no masses, no pulsatile masses. [] Obese.. Old surgical scar. Skin: Warm, dry, no erythema, no rash. [] Back: No tenderness, no CVA tenderness. [] Extremities: No tenderness, no cyanosis, no clubbing, ROM intact, no edema. [] Left sided psoas sign.Right hip scar. Neurologic: Alert and oriented X 3, normal motor function, normal sensory function, no focal deficits noted. [] Psychologic: Affect anxious, judgement normal, mood normal. [] Current Patient Data Vital Signs Vital Signs Date Time Temp Pulse Resp B/P (MAP) Pulse Ox O2 Delivery O2 Flow Rate FiO2 11/02/17 21:55 103 18 129/78 (95) 94 Room Air 11/02/17 17:58 100.6 Lab Results Laboratory Tests Test 11/02/17 18:45 White Blood Count 15.9 x10^3/uL (4.0-11.0) H Red Blood Count 4.35 x10^6/uL (3.50-5.40) Hemoglobin 12.2 g/dL (12.0-15.5) Hematocrit 36.5 % (36.0-47.0) Mean Corpuscular Volume 84 fL (79-100) Mean Corpuscular Hemoglobin 28 pg (25-35) Mean Corpuscular Hemoglobin Concent 34 g/dL (31-37) Red Cell Distribution Width 13.5 % (11.5-14.5) Platelet Count 365 x10^3/uL (140-400) Neutrophils (%) (Auto) 81 % (31-73) H Lymphocytes (%) (Auto) 9 % (24-48) L Monocytes (%) (Auto) 8 % (0-9) Eosinophils (%) (Auto) 2 % (0-3) Basophils (%) (Auto) 0 % (0-3) Neutrophils # (Auto) 12.8 x10^3uL (1.8-7.7) H Lymphocytes # (Auto) 1.5 x10^3/uL (1.0-4.8) Monocytes # (Auto) 1.2 x10^3/uL (0.0-1.1) H Eosinophils # (Auto) 0.2 x10^3/uL (0.0-0.7) Basophils # (Auto) 0.1 x10^3/uL (0.0-0.2) Segmented Neutrophils % 88 % (35-66) H Lymphocytes % 5 % (24-48) L Monocytes % 6 % (0-10) Eosinophils % 1 % (0-5) Platelet Estimate Increased (ADEQUATE) Large Platelets Occ Polychromasia Slight Ovalocytes Occ Schistocytes Occ Prothrombin Time 11.0 SEC (9.4-11.4) Prothrombin Time INR 1.1 (0.9-1.1) PTT 30 SEC (23-33) Urine Collection Type Unknown Urine Color Yellow Urine Clarity Clear Urine pH 5.5 Urine Specific [place] 1.025 Urine Protein 100 mg/dl (NEG-TRACE) Urine Glucose (UA) Neg mg/dL (NEG) Urine Ketones (Stick) >=160 mg/dL (NEG) Urine Blood Mod (NEG) Urine Nitrite Neg (NEG) Urine Bilirubin Neg (NEG) Urine Urobilinogen Dipstick 0.2 mg/dL (0.2 mg/dL) Urine Leukocyte Esterase Neg (NEG) Urine RBC Occ /HPF (0-2) Urine WBC Occ /HPF (0-4) Urine Squamous Epithelial Cells Occ /LPF Urine Bacteria 0 /HPF (0-FEW) Urine Mucus Mod /LPF Sodium Level 134 mmol/L (136-145) L Potassium Level 3.8 mmol/L (3.5-5.1) Chloride Level 99 mmol/L (98-107) Carbon Dioxide Level 25 mmol/L (21-32) Anion Gap 10 (6-14) Blood Urea Nitrogen 13 mg/dL (7-20) Creatinine 1.5 mg/dL (0.6-1.0) H Estimated GFR (Cockcroft-Gault) 35.5 Glucose Level 98 mg/dL (70-99) Lactic Acid Level 1.1 mmol/L (0.4-2.0) Calcium Level 8.6 mg/dL (8.5-10.1) Total Bilirubin 0.6 mg/dL (0.2-1.0) Direct Bilirubin 0.1 mg/dL (0.0-0.2) Aspartate Amino Transferase (AST) 11 U/L (15-37) L Alanine Aminotransferase (ALT) 14 U/L (14-59) Alkaline Phosphatase 102 U/L (46-116) Creatine Kinase 33 U/L (26-192) Troponin I Quantitative < 0.017 ng/mL (0-0.055) Total Protein 7.0 g/dL (6.4-8.2) Albumin 2.9 g/dL (3.4-5.0) L Lipase 53 U/L (73-393) L EKG EKG [] Radiology/Procedures Radiology/Procedures My interpretation of abdomen film shows no acute cardiopulmonary findings. No free air in the diaphragm. Increased stool throughout the colon. Findings of right hip replacement.[] The CT comparison to prior CT shows increased hydronephrosis.Minimal movement from prior exam. Does have findings of renal cyst which has now has findings of hemorrhage. See Formal report when available. Course & Med Decision Making Course & Med Decision Making Pertinent Labs and Imaging studies reviewed. (See chart for details). Discussed presentation, testing and treatment plan with Dr. Pinto. Will transferred to [facility] for urology consult and further tx. and eval. [] Final Impression Final Impression 1. Renal Stones Lt. 2. Hx. UTI 3. Fever[] 4. Possible urosepsis. 5. Leukocytosis 6. Elevated creatinine Problems: Dragon Disclaimer Dragon Disclaimer This electronic medical record was generated, in whole or in part, using a voice recognition dictation system. YARON MCKEON MD Nov 02, 2017 18:32
[2017-11-02] MEDS ORDERED: IV NORMAL SALINE 50ML 50 ML ONE (18:55)
[2017-11-02] MEDS ORDERED: cefTRIAXone SODIUM 1 GM VIAL IV ONE (18:55)
[2017-11-02] MEDS ORDERED: KETOROLAC 30 MG/ML VIAL. IV ONE (19:00)
[2017-11-02] MEDS ORDERED: IV RINGERS SOLUTION,LACTATED 1,000 ML IV SCH (19:00)
[2017-11-02] MEDS ORDERED: ONDANSETRON PF 4 MG/2 ML VIAL. IV ONE (19:00)
[2017-11-02 19:17] LABS: BASO # 0.1 x10^3/uL (0.0-0.2); BASO % 0 % (0-3); EOS # 0.2 x10^3/uL (0.0-0.7); EOS % 2 % (0-3); HEMATOCRIT 36.5 % (36.0-47.0); HEMOGLOBIN 12.2 g/dL (12.0-15.5); LYMPH # 1.5 x10^3/uL (1.0-4.8); LYMPH % 9 % (24-48); MEAN CORPUSCULAR HEMOGLOBIN 28 pg (25-35); MEAN CORPUSCULAR HGB CONC 34 g/dL (31-37); MEAN CORPUSCULAR VOLUME 84 fL (79-100); MONO # 1.2 x10^3/uL (0.0-1.1); MONO % 8 % (0-9); NEUT # 12.8 x10^3uL (1.8-7.7); NEUT % 81 % (31-73); PLATELET COUNT 365 x10^3/uL (140-400); RED BLOOD COUNT 4.35 x10^6/uL (3.50-5.40); RED CELL DISTRIBUTION WIDTH 13.5 % (11.5-14.5); WHITE BLOOD COUNT 15.9 x10^3/uL (4.0-11.0)
[2017-11-02 19:44] LABS: ALBUMIN 2.9 g/dL (3.4-5.0); BACTERIA,URINE 0 /HPF (0-FEW); BILIRUBIN,URINE NEG (NEG); CALCIUM 8.6 mg/dL (8.5-10.1); CLARITY,URINE CLEAR; COLOR,URINE YELLOW; CREATININE 1.5 mg/dL (0.6-1.0); DIRECT BILIRUBIN 0.1 mg/dL (0.0-0.2); GFR 35.5; GLUCOSE,URINE NEG (NEG); NITRITE,URINE NEG (NEG); POTASSIUM 3.8 mmol/L (3.5-5.1); RBC,URINE OCC /HPF (0-2); SQUAMOUS EPITHELIAL CELL,UR OCC /LPF; TOTAL BILIRUBIN 0.6 mg/dL (0.2-1.0); UROBILINOGEN,URINE 0.2 mg/dL (0.2 mg/dL); WBC,URINE OCC /HPF (0-4)
[2017-11-02] MEDS ORDERED: ACETAMINOPHEN 500 MG TABLET PO ONE (20:45)
--- NOTE | 2017-11-02 20:51 | RAD ---
CT ABDOMEN PELVIS WO CONTRAST Indication: Increased abdominal pain, fever, chills. Hx kidney stones Exposure: One or more of the following individualized dose reduction techniques were utilized for this examination: 1. Automated exposure control 2. Adjustment of the mA and/or kV according to patient size 3. Use of iterative reconstruction technique. Comparison: October 27, 2017 Contrast: None Lung bases clear. No evidence of pneumoperitoneum. Evaluation of solid viscera, bowel and vasculature is compromised by the noncontrast technique. Small low-density lesions in the liver again identified. Spleen stable. Pancreas demonstrates no acute inflammatory changes. Fatty lesions, possible lipomas are redemonstrated. No adrenal mass. Left hydronephrosis is redemonstrated as is ureteric dilatation. There are now 2 small calculi identified in the distal left ureter larger measures about 5 mm. Stranding in the fat around the left kidney has slightly improved but persists. One of the calculi previously seen in left renal pelvis is not identified and likely represents one of the distal calculi seen on the current study. Another calculus is still seen in left renal pelvis. Low-density of the left kidney measuring about 3.4 cm is identified and was seen previously. Now there is some hyperdense irregular material within this cyst, compatible with recent or acute hemorrhage. Note that this does appear to be contained within this cyst. Small low-density lesion of the right kidney is difficult to characterize but measures density characteristics compatible with a cyst. No evidence of bowel obstruction. There is some wall thickening of the sigmoid colon with mild adjacent stranding, suspicious for mild colitis. This also involves the descending colon. No ascites. No bone lesion. Degenerative changes of the spine. IMPRESSION: 1. 2 small obstructive calculi are now seen in the distal left ureter. The degree of hydronephrosis appears similar although the perinephric inflammatory stranding may be slightly better. 2. Wall thickening and mild inflammatory stranding around the descending and sigmoid colon, compatible with a nonspecific colitis. 3. Irregular hyperdensity is now identified within the left renal cyst, compatible with a small amount of recent or acute hemorrhage. There is blood product appears contained to the cyst, but correlate with patient's hemodynamic status. FOR INTERNAL CODING PURPOSES Critical result: Findings discussed with Dr. Shaw at 11/02/2017 8:47 PM. RESULT CODE: (C) Electronically signed by: Jim Fuentes MD (11/02/2017 8:47 PM) [facility]
--- NOTE | 2017-11-02 21:08 | EKG ---
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
[2017-11-02 21:55] VITALS: BP 129/78
[2017-11-02 22:43] LABS: % EOS 1 % (0-5); % LYMPHS 5 % (24-48); % MONOS 6 % (0-10); % SEGS 88 % (35-66); PLT ESTIMATE INCREASED (ADEQUATE); POLYCHROMASIA SLIGHT
[2017-11-02 22:44] LABS: OVALOCYTES OCC; SCHISTOCYTES OCC
--- NOTE | 2017-11-03 09:21 | RAD ---
ACUTE ABDOMEN SERIES Clinical Indication: Flank pain, hx stones, fever Comparison: CT abdomen and pelvis dated 10/27/2017 Findings: Low lung volume. No focal consolidations. Normal pulmonary vasculature. No pleural effusion or pneumothorax. The cardiomediastinal silhouette and great vessels are normal. No obvious free air. Nonobstructive bowel pattern. Large amount of stool within the ascending colon and hepatic flexure. Previously identified renal/ureteral stones are not apparent radiographically. No acute osseous abnormality. Remote left rib fractures. Mild dextrocurvature of the thoracolumbar spine could be positional. Incompletely visualized right total hip arthroplasty. IMPRESSION: 1. Previously identified renal/ureteral stones are not apparent radiographically. 2. Large amount of stool within the ascending colon and hepatic flexure. 3. No acute cardiopulmonary process.
== END 2017-11-02 22:10 | disposition short-term general hospital (02) ==
LOC: ER 17:45
DX: N20.0 Calculus of kidney (principal); D72.829 Elevated white blood cell count, unspecified; R79.89 Other specified abnormal findings of blood chemistry; I10 Essential (primary) hypertension; Z87.442 Personal history of urinary calculi; Z87.440 Personal history of urinary (tract) infections; Z90.710 Acquired absence of both cervix and uterus; Z88.5 Allergy status to narcotic agent
CPT/HCPCS: 36415; 74022; 74176; 80048; 80076; 81001; 82550; 83605; 83690; 84484; 85007; 85025; 85610; 85730; 87040; 93005; 96365; 96366; 96375; 99285; J0696; J1885; J2405; J3010; J7120

== ENCOUNTER 2019-04-08 19:31 | Emergency (ER) | payer OTHER ==
[~2019-04-08] VITALS: Ht 157.5 cm; Wt 79.2 kg
[~2019-04-08 19:31] MED LIST changes: +HYDR-2155 PO; -HYDR-2758 PO; +HYDR-3165 PO; -HYDR-971 PO
--- NOTE | 2019-04-08 19:43 | ED.ADGEN ---
Past History Past Medical History: Depression, Hypertension, Kidney Stones Past Surgical History: Hip Replacement, Hysterectomy Additional Past Surgical Histo: knee surgery, right hip replacement 2 Smoking: Non-smoker Alcohol Use: Rarely Drug Use: None Adult General Chief Complaint Chief Complaint ". I'm still hurting on this right flank and down into my lower abdomen..... I thought at first it might be a kidney stone.... I was seen at [facility] urgent care yesterday and they did a CT and didn't see any stone..... But had them before the next felt just like this....."... HPI HPI Patient is a 58 year old female who presents with above hx and complaints of hematuria and right flank pain. Patient's had previous hysterectomy but still has ovaries. Reportedly also had appendectomy. Has had multiple episodes of kidney stones. Patient has had 3 episodes of kidney stones with our hospital. Patient denies any intake bad food. Patient denies any trauma. Patient denies specific ill contacts. No recent travel. Review of Systems Review of Systems Constitutional: Denies fever or chills [] Eyes: Denies change in visual acuity, redness, or eye pain [] HENT: Denies nasal congestion or sore throat [] Respiratory: Denies cough or shortness of breath [] Cardiovascular: No additional information not addressed in HPI [] GI: Complaints of right flank abdominal pain, nausea,. Denies vomiting, bloody stools or diarrhea [] : Denies dysuria or hematuria [] Musculoskeletal: Denies back pain or joint pain [] Integument: Denies rash or skin lesions [] Neurologic: Denies headache, focal weakness or sensory changes [] Endocrine: Denies polyuria or polydipsia [] All other systems were reviewed and found to be within normal limits, except as documented in this note. Family History Family History Noncontributory Current Medications Current Medications Current Medications Medications (Trade) Dose Ordered Sig/Lev Start Time Stop Time Status Last Admin Dose Admin Ceftriaxone Sodium 1 gm/ Sodium Chloride 50 ml @ 100 mls/hr 1X ONCE 04/08/19 21:30 04/08/19 21:59 DC 04/08/19 21:43 100 MLS/HR Ceftriaxone Sodium (Rocephin) 1 gm STK-MED ONCE 04/08/19 21:37 04/08/19 21:37 DC Famotidine (Pepcid Vial) 20 mg 1X ONCE 04/08/19 19:45 04/08/19 19:55 DC 04/08/19 20:41 20 MG Fentanyl Citrate (Fentanyl 2ml Vial) 75 mcg 1X ONCE 04/08/19 21:30 04/08/19 21:33 DC 04/08/19 21:42 75 MCG Iohexol (Omnipaque 240 Mg/ml) 30 ml 1X ONCE 04/08/19 20:15 04/08/19 20:16 DC 04/08/19 21:53 30 ML Iohexol (Omnipaque 300 Mg/ml) 75 ml 1X ONCE 04/08/19 20:15 04/08/19 20:16 DC 04/08/19 21:53 75 ML Ketorolac Tromethamine (Toradol 30mg Vial) 30 mg 1X ONCE 04/08/19 19:45 04/08/19 19:55 DC 04/08/19 20:41 30 MG Lactated Ringer's 1,000 ml @ 1,000 mls/hr Q1H 04/08/19 19:44 04/08/19 20:43 DC 04/08/19 20:42 1,000 MLS/HR Metronidazole 100 ml @ 100 mls/hr 1X ONCE 04/08/19 21:30 04/08/19 22:29 DC 04/08/19 22:34 100 MLS/HR Ondansetron HCl (Zofran) 8 mg 1X ONCE 04/08/19 19:45 04/08/19 19:55 DC 04/08/19 20:41 8 MG Sodium Chloride 50 ml @ As Directed STK-MED ONCE 04/08/19 21:37 04/08/19 21:37 DC Allergies Allergies Allergies Coded Allergies Type Severity Reaction Last Updated Verified morphine Allergy Intermediate Rash 11/02/17 Yes Physical Exam Physical Exam Constitutional:in acute distress, non-toxic appearance. [] HENT: Normocephalic, atraumatic, bilateral external ears normal, oropharynx moist, no oral exudates, nose normal. [] Eyes: PERRLA, EOMI, conjunctiva normal, no discharge. [] Neck: Normal range of motion, no tenderness, supple, no stridor. [] Cardiovascular:Heart rate regular rhythm, no murmur [] Lungs & Thorax: Bilateral breath sounds clear to auscultation [] Abdomen: Bowel sounds decreased, soft, right flank tenderness, no masses, no pulsatile masses. [] Old surgical scars. Skin: Warm, dry, no erythema, no rash. [] Back: No tenderness, right CVA tenderness. [] Extremities: No tenderness, no cyanosis, no clubbing, ROM intact, no edema. [] No psoas sign. Right hip and knee scar. Neurologic: Alert and oriented X 3, normal motor function, normal sensory function, no focal deficits noted. [] Psychologic: Affect anxious, judgement normal, mood normal. [] Current Patient Data Vital Signs Vital Signs Date Time Temp Pulse Resp B/P (MAP) Pulse Ox O2 Delivery O2 Flow Rate FiO2 04/08/19 23:02 85 16 113/67 (82) 95 04/08/19 21:00 Room Air 04/08/19 19:44 98.2 Lab Results Laboratory Tests Test 04/08/19 20:25 04/08/19 20:38 White Blood Count 10.5 x10^3/uL (4.0-11.0) Red Blood Count 4.73 x10^6/uL (3.50-5.40) Hemoglobin 13.1 g/dL (12.0-15.5) Hematocrit 41.6 % (36.0-47.0) Mean Corpuscular Volume 88 fL (79-100) Mean Corpuscular Hemoglobin 28 pg (25-35) Mean Corpuscular Hemoglobin Concent 32 g/dL (31-37) Red Cell Distribution Width 14.6 % (11.5-14.5) H Platelet Count 273 x10^3/uL (140-400) Neutrophils (%) (Auto) 60 % (31-73) Lymphocytes (%) (Auto) 27 % (24-48) Monocytes (%) (Auto) 6 % (0-9) Eosinophils (%) (Auto) 6 % (0-3) H Basophils (%) (Auto) 1 % (0-3) Neutrophils # (Auto) 6.3 x10^3uL (1.8-7.7) Lymphocytes # (Auto) 2.9 x10^3/uL (1.0-4.8) Monocytes # (Auto) 0.7 x10^3/uL (0.0-1.1) Eosinophils # (Auto) 0.6 x10^3/uL (0.0-0.7) Basophils # (Auto) 0.1 x10^3/uL (0.0-0.2) Prothrombin Time 9.8 SEC (9.4-11.4) Prothrombin Time INR 0.9 (0.9-1.1) Activated Partial Thromboplast Time 26 SEC (23-33) Sodium Level 142 mmol/L (136-145) Potassium Level 3.8 mmol/L (3.5-5.1) Chloride Level 105 mmol/L (98-107) Carbon Dioxide Level 29 mmol/L (21-32) Anion Gap 8 (6-14) Blood Urea Nitrogen 17 mg/dL (7-20) Creatinine 0.9 mg/dL (0.6-1.0) Estimated GFR (Cockcroft-Gault) 63.9 Glucose Level 97 mg/dL (70-99) Calcium Level 9.3 mg/dL (8.5-10.1) Total Bilirubin 0.7 mg/dL (0.2-1.0) Direct Bilirubin 0.1 mg/dL (0.0-0.2) Aspartate Amino Transferase (AST) 14 U/L (15-37) L Alanine Aminotransferase (ALT) 12 U/L (14-59) L Alkaline Phosphatase 120 U/L (46-116) H Total Protein 7.1 g/dL (6.4-8.2) Albumin 3.7 g/dL (3.4-5.0) Urine Collection Type U cath Urine Color Brown Urine Clarity Bloody Urine pH 5.5 Urine Specific [place] >=1.030 Urine Protein 100 mg/dl (NEG-TRACE) Urine Glucose (UA) Neg mg/dL (NEG) Urine Ketones (Stick) Neg mg/dL (NEG) Urine Blood Large (NEG) Urine Nitrite Neg (NEG) Urine Bilirubin Neg (NEG) Urine Urobilinogen Dipstick 0.2 mg/dL (0.2 mg/dL) Urine Leukocyte Esterase Neg (NEG) Urine RBC Tntc /HPF (0-2) Urine WBC Occ /HPF (0-4) Urine Squamous Epithelial Cells Occ /LPF Urine Bacteria Mod /HPF (0-FEW) Urine Mucus Mod /LPF Urine Yeast Present /HPF Urine Opiates Screen Pos (NEG) Urine Methadone Screen Neg (NEG) Urine Barbiturates Neg (NEG) Urine Phencyclidine Screen Neg (NEG) Urine Amphetamine/Methamphetamine Neg (NEG) Urine Benzodiazepines Screen Neg (NEG) Urine Cocaine Screen Neg (NEG) Urine Cannabinoids Screen Neg (NEG) Urine Ethyl Alcohol Neg (NEG) EKG EKG [] Radiology/Procedures Radiology/Procedures Reviewed CT completed at [facility] on 04/07/2019 - No acute tender abdomen or pelvic process. No hydronephrosis. 1.5 cm right ovarian cyst. No acute surgical processes noted. [][address] [address] IMAGING REPORT Signed PATIENT: REGGIE NGUYEN AACCOUNT: [id number] : 1960 LOCATION: ER AGE: 58 SEX: F EXAM STATUS: PRE ER ORD. PHYSICIAN: YARON MCKEON MD REASON: Abdomen pain, hematuria, nausea, vomiting. Hx:Appy,hystero PROCEDURE: CT ABD PELV W/ORAL&IV CONTRAST CT SCAN OF THE ABDOMEN AND PELVIS WITH IV CONTRAST. History: Abdominal pain and hematuria and nausea and vomiting Comparison:None. Procedure: Contiguous axial images of the abdomen and pelvis were performed after the administration of 75 cc of Omni 350 IV contrast and oral contrast. CT Abdomen with contrast: Findings: Liver: There are few small cysts Spleen: Unremarkable Pancreas: Unremarkable Adrenal Glands: Unremarkable Kidneys: Bilateral cysts There is no mass or lymphadenopathy. There is no free air. There is no free fluid. The left colon is collapsed limiting its evaluation. Impression: No acute findings. End Impression CT Pelvis with Contrast: Findings: The urinary bladder appears normal. There is no free fluid. There is no lymphadenopathy. There is beam Dupree artifact from prior right hip total arthroplasty. There is old pelvic fractures bilaterally. The appendix is not seen. Impression: No acute findings. PQRS Compliance Statement: One or more of the following individualized dose reduction techniques were utilized for this examination: 1. Automated exposure control 2. Adjustment of the mA and/or kV according to patient size 3. Use of iterative reconstruction technique Electronically signed by: Kaley Hernandez III, MD (04/08/2019 10:16 PM) [id number] DICTATED AND SIGNED BY: KALEY HERNANDEZ III, MD DATE: 04/08/192215 CC: YARON MCKEON MD; PRINCESS ESTEVEZ DO ~ [place] [address] IMAGING REPORT Signed PATIENT: REGGIE NGUYEN AACCOUNT: [id number] : 1960 LOCATION: ER AGE: 58 SEX: F EXAM STATUS: PRE ER ORD. PHYSICIAN: YARON MCKEON MD REASON: Abdomen pain, nausea, vomiting PROCEDURE: ACUTE ABDOMEN SERIES Exam: Acute abdominal series INDICATION: Abdominal pain TECHNIQUE: Frontal view of the chest with upright and supine views of the abdomen Comparisons: CT 11/02/2017 FINDINGS: The cardiomediastinal silhouette and pulmonary vessels are within normal limits. The lung and pleural spaces are clear. Air and stool are seen throughout the colon to level of the rectum in a nonobstructive bowel gas pattern. No suspicious masses or calcifications. No free air. Mild osteopenia. Right hip arthroplasty partially visualized. Moderate osteophytic change at the left hip joint. IMPRESSION: 1. No acute cardiopulmonary process. 2. Nonobstructive bowel gas pattern. Electronically signed by: Raysa Hernandez MD (04/08/2019 9:29 PM) [facility] DICTATED AND SIGNED BY: RAYSA HERNANDEZ MD DATE: 04/08/192128 CC: YARON MCKEON MD; PRINCESS ESTEVEZ DO ~ Course & Med Decision Making Course & Med Decision Making Pertinent Labs and Imaging studies reviewed. (See chart for details) Follow-up primary care. Review labs and x-rays with primary care. Clear fluid diet. Tylenol and ibuprofen for pain. May take Vicoprofen for marked discomfort. Zofran for nausea and vomiting. Re-exam no improvement. Consider repeating colonoscopy and follow-up with urology. [] Final Impression Final Impression 1. Abdomen pain[] 2. Elevaed Alk . Phos. 120 3. Hematuria Dragon Disclaimer Dragon Disclaimer This electronic medical record was generated, in whole or in part, using a voice recognition dictation system. Dragon Disclaimer This chart was dictated in whole or in part using Voice Recognition software in a busy, high-work load, and often noisy Emergency Department environment. It may contain unintended and wholly unrecognized errors or omissions. Dragon Disclaimer This chart was dictated in whole or in part using Voice Recognition software in a busy, high-work load, and often noisy Emergency Department environment. It may contain unintended and wholly unrecognized errors or omissions. YARON MCKEON MD Apr 08, 2019 19:43
[2019-04-08] MEDS: KETOROLAC 30 MG/ML VIAL. IV ONE (20:41)
[2019-04-08] MEDS: FAMOTIDINE 20 MG/2 ML VIAL IVP ONE (20:41)
[2019-04-08] MEDS: ONDANSETRON PF 4 MG/2 ML VIAL. IV ONE (20:41)
[2019-04-08] MEDS: IV RINGERS SOLUTION,LACTATED 1,000 ML IV SCH (20:42)
[2019-04-08 20:43] LABS: BASO # 0.1 x10^3/uL (0.0-0.2); BASO % 1 % (0-3); EOS # 0.6 x10^3/uL (0.0-0.7); EOS % 6 % (0-3); HEMATOCRIT 41.6 % (36.0-47.0); HEMOGLOBIN 13.1 g/dL (12.0-15.5); LYMPH # 2.9 x10^3/uL (1.0-4.8); LYMPH % 27 % (24-48); MEAN CORPUSCULAR HEMOGLOBIN 28 pg (25-35); MEAN CORPUSCULAR HGB CONC 32 g/dL (31-37); MEAN CORPUSCULAR VOLUME 88 fL (79-100); MONO # 0.7 x10^3/uL (0.0-1.1); MONO % 6 % (0-9); NEUT # 6.3 x10^3uL (1.8-7.7); NEUT % 60 % (31-73); PLATELET COUNT 273 x10^3/uL (140-400); RED BLOOD COUNT 4.73 x10^6/uL (3.50-5.40); RED CELL DISTRIBUTION WIDTH 14.6 % (11.5-14.5); WHITE BLOOD COUNT 10.5 x10^3/uL (4.0-11.0)
[2019-04-08 20:56] LABS: ALBUMIN 3.7 g/dL (3.4-5.0); CALCIUM 9.3 mg/dL (8.5-10.1); CREATININE 0.9 mg/dL (0.6-1.0); DIRECT BILIRUBIN 0.1 mg/dL (0.0-0.2); GFR 63.9; POTASSIUM 3.8 mmol/L (3.5-5.1); TOTAL BILIRUBIN 0.7 mg/dL (0.2-1.0); TOTAL PROTEIN 7.1 g/dL (6.4-8.2)
[2019-04-08 21:04] LABS: BACTERIA,URINE MOD /HPF (0-FEW); BARBITURATES NEG (NEG); BENZODIAZEPINES NEG (NEG); BILIRUBIN,URINE NEG (NEG); CANNABINOIDS NEG (NEG); CLARITY,URINE BLOODY; COCAINE NEG (NEG); COLOR,URINE BROWN; GLUCOSE,URINE NEG (NEG); METHADONE NEG (NEG); NITRITE,URINE NEG (NEG); OPIATES POS (NEG); PHENCYCLIDINE NEG (NEG); RBC,URINE TNTC /HPF (0-2); SQUAMOUS EPITHELIAL CELL,UR OCC /LPF; UROBILINOGEN,URINE 0.2 mg/dL (0.2 mg/dL); WBC,URINE OCC /HPF (0-4)
[2019-04-08 21:05] LABS: YEAST,URINE PRESENT /HPF
[2019-04-08 21:07] LABS: AMPHETAMINE/METHAMPHETAMINE NEG (NEG)
--- NOTE | 2019-04-08 21:32 | RAD ---
Exam: Acute abdominal series INDICATION: Abdominal pain TECHNIQUE: Frontal view of the chest with upright and supine views of the abdomen Comparisons: CT 11/02/2017 FINDINGS: The cardiomediastinal silhouette and pulmonary vessels are within normal limits. The lung and pleural spaces are clear. Air and stool are seen throughout the colon to level of the rectum in a nonobstructive bowel gas pattern. No suspicious masses or calcifications. No free air. Mild osteopenia. Right hip arthroplasty partially visualized. Moderate osteophytic change at the left hip joint. IMPRESSION: 1. No acute cardiopulmonary process. 2. Nonobstructive bowel gas pattern. Electronically signed by: Raysa Gaines MD (04/08/2019 9:29 PM) [facility]
[2019-04-08] MEDS ORDERED: cefTRIAXone SODIUM 1 GM VIAL ONE (21:37)
[2019-04-08] MEDS ORDERED: IV NORMAL SALINE 50ML 50 ML ONE (21:37)
[2019-04-08] MEDS: IOHEXOL 240 MG/ML 50ML VIAL. PO ONE (21:53)
[2019-04-08] MEDS: IOHEXOL 300 MG/ML 75 ML VIAL. IV ONE (21:53)
--- NOTE | 2019-04-08 22:19 | RAD ---
CT SCAN OF THE ABDOMEN AND PELVIS WITH IV CONTRAST. History: Abdominal pain and hematuria and nausea and vomiting Comparison:None. Procedure: Contiguous axial images of the abdomen and pelvis were performed after the administration of 75 cc of Omni 350 IV contrast and oral contrast. CT Abdomen with contrast: Findings: Liver: There are few small cysts Spleen: Unremarkable Pancreas: Unremarkable Adrenal Glands: Unremarkable Kidneys: Bilateral cysts There is no mass or lymphadenopathy. There is no free air. There is no free fluid. The left colon is collapsed limiting its evaluation. Impression: No acute findings. End Impression CT Pelvis with Contrast: Findings: The urinary bladder appears normal. There is no free fluid. There is no lymphadenopathy. There is beam Dupree artifact from prior right hip total arthroplasty. There is old pelvic fractures bilaterally. The appendix is not seen. Impression: No acute findings. PQRS Compliance Statement: One or more of the following individualized dose reduction techniques were utilized for this examination: 1. Automated exposure control 2. Adjustment of the mA and/or kV according to patient size 3. Use of iterative reconstruction technique Electronically signed by: Gus Jesus III, MD (04/08/2019 10:16 PM) [facility]
[2019-04-08] MEDS ORDERED: ONDA8TAB9 PO (22:37)
[2019-04-08] MEDS ORDERED: CEPH-264 PO (22:37)
[2019-04-08] MEDS ORDERED: HYDR-1179 PO (22:37)
[2019-04-08 23:02] VITALS: BP 113/67
== END 2019-04-09 | disposition home or self-care (01) ==
LOC: ER 19:31
DX: R31.9 Hematuria, unspecified (principal); R10.9 Unspecified abdominal pain; R74.8 Abnormal levels of other serum enzymes; I10 Essential (primary) hypertension; Z87.442 Personal history of urinary calculi; Z90.710 Acquired absence of both cervix and uterus; Z88.5 Allergy status to narcotic agent
CPT/HCPCS: 36415; 74022; 74177; 80048; 80076; 80307; 81001; 85025; 85610; 85730; 87086; 96361; 96365; 96366; 96367; 96375; 99285; J0696; J1885; J2405; J3010; J3490; J7120; P9612; Q9966; Q9967

== ENCOUNTER 2019-05-26 07:29 | Emergency (ER) | payer OTHER ==
[~2019-05-26] VITALS: Ht 157.5 cm; Wt 79.2 kg
[~2019-05-26 07:29] MED LIST changes: +CEPH-264 PO; +HYDR-1179 PO; +ONDA8TAB9 PO
--- NOTE | 2019-05-26 07:58 | PHYS DOC ---
Past History Past Medical History: Depression, Hypertension, Kidney Stones Past Surgical History: Appendectomy, Hip Replacement, Hysterectomy, Other Additional Past Surgical Histo: knee surgery, right hip revision Smoking: Non-smoker Alcohol Use: Rarely Drug Use: None Adult General Chief Complaint Chief Complaint: SHORTNESS OF BREATH [facility] HPI 58-year-old female presents with nausea and shortness of breath. The patient has been feeling nauseous on and off for the last 3 days. This morning after she woke up, she was also feeling slightly short of breath. She denies chest pain or diaphoresis. She has had some intermittent cough, but thinks this is related to her nausea more than a cough. She has had some frothy sputum. Patient has generalized abdominal cramping that is mild in intensity and radiates to her back. She has had kidney stones in the past. She denies dysuria or increased urinary frequency. She denies fever or chills. Review of Systems Review of Systems Constitutional: Denies fever or chills [] Eyes: Denies change in visual acuity, redness, or eye pain [] HENT: Denies nasal congestion or sore throat [] Respiratory: shortness of breath [] Cardiovascular: No additional information not addressed in HPI [] GI: Generalized abdominal pain, nausea, vomiting. Denies bloody stools or diarrhea [] : Denies dysuria or hematuria [] Musculoskeletal: Denies back pain or joint pain [] Integument: Denies rash or skin lesions [] Neurologic: Denies headache, focal weakness or sensory changes [] Endocrine: Denies polyuria or polydipsia [] All other systems were reviewed and found to be within normal limits, except as documented in this note. Current Medications Current Medications Current Medications Medications (Trade) Dose Ordered Sig/[facility] Start Time Stop Time Status Last Admin Dose Admin Famotidine (Pepcid Vial) 20 mg 1X ONCE 05/26/19 08:00 05/26/19 08:01 UNV Ondansetron HCl (Zofran) 4 mg 1X ONCE 05/26/19 08:00 05/26/19 08:01 UNV Pantoprazole Sodium (Protonix Vial) 40 mg 1X ONCE 05/26/19 08:00 05/26/19 08:01 UNV Sodium Chloride 1,000 ml @ 1,000 mls/hr 1X ONCE 05/26/19 08:00 05/26/19 08:59 UNV Allergies Allergies Allergies Coded Allergies Type Severity Reaction Last Updated Verified morphine Allergy Intermediate Rash 11/02/17 Yes Physical Exam Physical Exam Constitutional: Well developed, well nourished, no acute distress, non-toxic appearance. [] HENT: Normocephalic, atraumatic, bilateral external ears normal, oropharynx moist, no oral exudates, nose normal. [] Eyes: PERRLA, EOMI, conjunctiva normal, no discharge. [] Neck: Normal range of motion, no tenderness, supple, no stridor. [] Cardiovascular:Heart rate regular rhythm, no murmur [] Lungs & Thorax: Bilateral breath sounds clear to auscultation [] Abdomen: Bowel sounds normal, soft, mild generalized tenderness, no masses, no pulsatile masses. [] Skin: Warm, dry, no erythema, no rash. [] Back: No tenderness, no CVA tenderness. [] Extremities: No tenderness, no cyanosis, no clubbing, ROM intact, no edema. [] Neurologic: Alert and oriented X 3, normal motor function, normal sensory function, no focal deficits noted. [] Psychologic: Affect normal, judgement normal, mood normal. [] EKG EKG Sinus rhythm, rate 84, normal axis, no ST elevations or depressions.[] Radiology/Procedures Radiology/Procedures [] Impressions: AP and Lateral Views of the Chest 05/26/2019 7:39 AM Indication: Shortness of breath Comparison: None Findings: There is no focal consolidation or infiltrate identified. The cardiomediastinal silhouette is within normal limits. There is no evidence of pneumothorax or pleural effusion. Chronic left-sided rib fractures noted. Levocurvature of the thoracic spine noted. Impression: No evidence of acute cardiopulmonary process. Electronically signed by: Rosendo Ellis MD (05/26/2019 8:23 AM) [facility] DICTATED AND SIGNED BY: ROSENDO ELLIS MD DATE: 05/26/19822 CC: OLINDA JEAN-BAPTISTE DO; PRINCESS ESTEVEZ DO ~ Course & Med Decision Making Course & Med Decision Making Pertinent Labs and Imaging studies reviewed. (See chart for details) The patient's labs are unremarkable except for slightly elevated alkaline phosphatase. Chest x-ray is unremarkable. EKG is unremarkable. Her urinalysis is negative for infection. We have given a liter of normal saline, 20 mg Pepcid IV, and 40 mg of Protonix IV. I have also given her Bentyl for her abdominal cramping. I do not have any new can abnormal findings. The patient does not meet admission criteria. She is stable for discharge at this time. I will discharge her with a prescription for Zofran. [] Dragon Disclaimer Dragon Disclaimer This electronic medical record was generated, in whole or in part, using a voice recognition dictation system. Departure Departure: Impression: Primary Impression: Nausea & vomiting Additional Impression: Abdominal pain Disposition: HOME, SELF-CARE Condition: STABLE Referrals: PRINCESS ESTEVEZ DO (PCP) Patient Instructions: Abdominal Pain, [id number], Nausea and Vomiting, [id number] Scripts Dicyclomine Hcl (DICYCLOMINE HCL) 20 Mg Tablet 1 TAB PO TID PRN for STOMACH CRAMPING, #30 TAB 0 Refills Prov: OLINDA JEAN-BAPTISTE DO 05/26/19 Ondansetron (ONDANSETRON ODT) 4 Mg Tab.rapdis 1 TAB PO PRN Q6-8HRS PRN for VOMITING, #16 TAB Prov: OLINDA JEAN-BAPTISTE DO 05/26/19 Problem Qualifiers Primary Impression: Nausea & vomiting Vomiting type: unspecified Vomiting Intractability: non-intractable Qualified Codes: R11.2 - Nausea with vomiting, unspecified Additional Impression: Abdominal pain Abdominal location: generalized Qualified Codes: R10.84 - Generalized abdominal pain OLINDA JEAN-BAPTISTE DO May 26, 2019 07:58
[2019-05-26] MEDS ORDERED: IV NORMAL SALINE 1,000ML 1,000 ML IV ONE (08:00)
[2019-05-26 08:06] LABS: BASO % 1 % (0-3); EOS # 0.1 x10^3/uL (0.0-0.7); EOS % 1 % (0-3); HEMATOCRIT 40.1 % (36.0-47.0); LYMPH # 2.2 x10^3/uL (1.0-4.8); LYMPH % 39 % (24-48); MEAN CORPUSCULAR HEMOGLOBIN 27 pg (25-35); MEAN CORPUSCULAR HGB CONC 32 g/dL (31-37); MEAN CORPUSCULAR VOLUME 83 fL (79-100); MONO # 0.7 x10^3/uL (0.0-1.1); MONO % 12 % (0-9); NEUT # 2.6 x10^3uL (1.8-7.7); NEUT % 47 % (31-73); PLATELET COUNT 221 x10^3/uL (140-400); RED BLOOD COUNT 4.82 x10^6/uL (3.50-5.40); WHITE BLOOD COUNT 5.5 x10^3/uL (4.0-11.0)
[2019-05-26] MEDS ORDERED: ONDANSETRON PF 4 MG/2 ML VIAL. IVP ONE (08:15)
[2019-05-26] MEDS ORDERED: PANTOPRAZOLE IV 40 MG VIAL. IVP ONE (08:15)
[2019-05-26] MEDS ORDERED: FAMOTIDINE 20 MG/2 ML VIAL IVP ONE (08:15)
[2019-05-26 08:21] LABS: ALBUMIN 3.1 g/dL (3.4-5.0); ALBUMIN/GLOBULIN RATIO 0.9 (1.0-1.7); CALCIUM 8.3 mg/dL (8.5-10.1); CREATININE 0.8 mg/dL (0.6-1.0); GFR 73.2; POTASSIUM 3.6 mmol/L (3.5-5.1); TOTAL BILIRUBIN 0.8 mg/dL (0.2-1.0); TOTAL PROTEIN 6.6 g/dL (6.4-8.2)
--- NOTE | 2019-05-26 08:26 | RAD ---
AP and Lateral Views of the Chest 05/26/2019 7:39 AM Indication: Shortness of breath Comparison: None Findings: There is no focal consolidation or infiltrate identified. The cardiomediastinal silhouette is within normal limits. There is no evidence of pneumothorax or pleural effusion. Chronic left-sided rib fractures noted. Levocurvature of the thoracic spine noted. Impression: No evidence of acute cardiopulmonary process. Electronically signed by: Rosendo Viveros MD (05/26/2019 8:23 AM) [facility]
[2019-05-26 08:27] LABS: BILIRUBIN,URINE NEG (NEG); CLARITY,URINE HAZY; COLOR,URINE AMBER; GLUCOSE,URINE NEG (NEG)
[2019-05-26 08:28] LABS: BACTERIA,URINE FEW /HPF (0-FEW); NITRITE,URINE NEG (NEG); RBC,URINE 0 /HPF (0-2); SQUAMOUS EPITHELIAL CELL,UR MANY /LPF; UROBILINOGEN,URINE 1 mg/dL (0.2 mg/dL)
[2019-05-26] MEDS ORDERED: DICYCLOMINE 20 MG/2 ML AMPUL. IM ONE (09:00)
[2019-05-26] MEDS ORDERED: DICYCLOMINE HCL 20 MG TABLET PO ONE (09:15)
[2019-05-26] MEDS ORDERED: ONDA4TAB12 PO (09:47)
[2019-05-26] MEDS ORDERED: DICY20TA3 PO (09:53)
[2019-05-26 10:13] VITALS: BP 120/64
[2019-05-26] MEDS ORDERED: PROCHLORPERAZINE 10 MG/2 ML VIAL. IV ONE (10:15)
== END 2019-05-26 10:13 | disposition home or self-care (01) ==
LOC: ER 07:29
DX: R11.2 Nausea with vomiting, unspecified (principal); R10.84 Generalized abdominal pain; R06.02 Shortness of breath; F32.9 Major depressive disorder, single episode, unspecified; I10 Essential (primary) hypertension; Z90.89 Acquired absence of other organs; Z90.710 Acquired absence of both cervix and uterus; Z88.5 Allergy status to narcotic agent
CPT/HCPCS: 36415; 71046; 80053; 81001; 84484; 85025; 87086; 96361; 96374; 96375; 99285; C9113; J0780; J2405; J3490; J7030

== ENCOUNTER 2021-02-13 16:16 | Emergency (ER) | payer OTHER ==
[~2021-02-13] VITALS: Ht 157.5 cm; Wt 69.5 kg
[~2021-02-13 16:16] MED LIST changes: +DICY20TA3 PO; +ONDA4TAB12 PO
--- NOTE | 2021-02-13 17:15 | PHYS DOC ---
Past History Past Medical History: Depression, Hypertension, Kidney Stones Additional Past Medical Histor: migraines (PAKO PHILLIPS APRN) Past Surgical History: Hip Replacement, Hysterectomy, Knee Replacement Additional Past Surgical Histo: knee surgery, right hip revision (PAKO PHILLIPS APRN) Smoking: Non-smoker Alcohol Use: None Drug Use: Opiates (PAKO PHILLIPS APRN) General Adult EDM: Chief Complaint: HEADACHE HPI: HPI: Patient is a 60-year-old female being seen in the ER for a migraine headache. Patient reports that yesterday morning she woke up with a headache in her right eye. Patient rates her pain 8 out of 10. No treatment prior to arrival. Patient reports that this feels like her typical migraine headaches. She does not take anything at home for her migraines. She is also reporting nausea and photophobia. Patient denies thunderclap headache, photophobia, vomiting, vision changes, fever, neck stiffness. (PAKO PHILLIPS APRN) Review of Systems: Review of Systems: 14 body systems of the review of systems have been reviewed. See HPI for perti nent positive and negative responses, otherwise all other systems are negative, nonpertinent or noncontributory (PAKO PHILLIPS APRN) Allergies: Allergies: Allergies Coded Allergies Type Severity Reaction Last Updated Verified morphine Allergy Intermediate Rash 11/02/17 Yes (PAKO PHILLIPS APRN) Physical Exam: PE: Constitutional: Well developed, well nourished, no acute distress, non-toxic appearance. [] HENT: Normocephalic, atraumatic Eyes: PERRL, EOMI, conjunctiva normal, no discharge. [] Neck: Normal range of motion, no tenderness, supple, no stridor. [] Cardiovascular:Heart rate regular rhythm, no murmur [] Lungs & Thorax: Bilateral breath sounds clear to auscultation [] Skin: Warm, dry, no erythema, no rash. [] Back: Normal range of motion Extremities: No tenderness, no cyanosis, no clubbing, ROM intact, no edema. [] Neurologic: Alert and oriented X 3, normal motor function, normal sensory function, no focal deficits noted. [] Psychologic: Affect normal, judgement normal, mood normal. [] (PAKO PHILLIPS APRN) Current Patient Data: Vital Signs: Vital Signs Date Time Temp Pulse Resp B/P (MAP) Pulse Ox O2 Delivery O2 Flow Rate FiO2 02/13/21 16:20 98.0 84 14 171/92 100 Room Air (PAKO PHILLIPS APRN) EKG: EKG: [] (PAKO PHILLIPS APRN) Radiology/Procedures: Radiology/Procedures: [] (PAKO PHILLIPS APRN) Heart Score: C/O Chest Pain: No Risk Factors: Risk Factors: DM, Current or recent (<one month) smoker, HTN, HLP, family history of CAD, obesity. Risk Scores: Score 0 - 3: 2.5% MACE over next 6 weeks - Discharge Home Score 4 - 6: 20.3% MACE over next 6 weeks - Admit for Clinical Observation Score 7 - 10: 72.7% MACE over next 6 weeks - Early Invasive Strategies (PAKO PHILLIPS APRN) Course & Med Decision Making: Course & Med Decision Making Pertinent Labs and Imaging studies reviewed. (See chart for details) [] Patient is a 60-year-old female coming in for a migraine headache. Patient's vital signs are stable. Negative thunderclap headache negative meningeal signs. Patient treated with migraine cocktail and fluids. Patient reports relief in her symptoms following the medications. Patient advised that she can take Tylenol/ibuprofen at home for headaches. Patient advised to follow-up with her primary care provider if she continues to have migraine headaches at home. I discussed with patient all findings and diagnostic testing as well as the need to follow-up with PCP for further evaluation and treatment or return to the ER if any new or worsening symptoms. Strict return precautions were also d iscussed at length. Patient voiced understanding and agreement with the plan. Patient is hemodynamically stable at the time of disposition. (PAKO PHILLIPS APRN) Dragon Disclaimer: Dragon Disclaimer: This electronic medical record was generated, in whole or in part, using a voice recognition dictation system. (PAKO PHILLIPS APRN) Departure Departure: Impression: Primary Impression: Migraine Qualified Codes: G43.909 - Migraine, unspecified, not intractable, without status migrainosus Disposition: HOME / SELF CARE / HOMELESS Condition: GOOD Referrals: JENI KUMAR MD (PCP) Patient Instructions: Migraine Headache Additional Instructions: You were seen in the emergency department for a headache which is most likely a migraine. You were given a migraine cocktail which includes Toradol, Compazine, and Benadryl which resolved the headache. Fluids were also given to help with dehydration which is commonly a cause of headache. Team to hydrate at home with water and other fluids and eat normal diet. Please return to the emergency department if you have any vomiting, fever, increased pain that is refractory to treatments at home, vision changes, changes in behavior or mental status, or any focal neurological symptoms including weakness or numbness in the limbs. It is important to follow-up with your doctor tomorrow regarding your ER visit for reexamination. EMERGENCY DEPARTMENT GENERAL DISCHARGE INSTRUCTIONS Thank you for coming to [facility] (ED) today and trusting us with you care. We trust that you had a positivie experience in our Emergency Department. If you wish to speak to the department management, you may call the director at [phone]. YOUR FOLLOW UP INSTRUCTIONS ARE FOLLOWS: 1. Do you have a private Doctor? If you do not have a private doctor, please ask for a resource list of physicians or clinics that may be able to assist you with follow up care. 2. The Emergency Physician has interpreted your x-rays. The X-Ray specialist will also review them. If there is a change in the findings, you will be notified in 48 hours when at all possible. 3. A lab test or culture has been done, your results will be reviewed and you will be notified if you need a change in treatment. ADDITIONAL INSTRUCTIONS AND INFORMATION: 1. Your care today has been supervised by a physician who is specially trained in emergency care. Many problems require more than one evaluation for a complete diagnosis and treatment. We recommend that you schedule your follow up appointment as recommended to ensure complete treatment of you illness or injury. If you are unable to obtain follow up care and continue to have a problem, or if your condition worsens, we recommend that you return to the ED. 2. We are not able to safely determine your condition over the phone nor are we able to give sound medical advice over the phone. For these safety reasons, if you call for medical advice we will ask you to come to the ED for further evaluation. 3. If you have any questions regarding these discharge instructions please call the ED at [phone]. SAFETY INFORMATION: In the interest of safety, wellness, and injury prevention; we encourage you to wear your sealbelt, if you smoke; quite smoking, and we encourage family to use a protective helmet for bicycling and other sporting events that present an increased risk for head injury. IF YOUR SYMPTOMS WORSEN OR NEW SYMPTOMS DEVELOP, OR YOU HAVE CONCERNS ABOUT YOUR CONDITION; OR IF YOUR CONDITION WORSENS WHILE YOU ARE WAITING FOR YOUR FOLLOW UP APPOINTMENT; EITHER CONTACT YOUR PRIMARY CARE DOCTOR, THE PHYSICIAN WHOSE NAME AND NUMBER YOU WERE GIVEN, OR RETURN TO THE ED IMMEDIATELY. Attending Signature Attending Signature I have reviewed the PA/[employer] WAREHOUSE MANAGER's note and plan of care. I was available for consultation as needed during the patient's visit in the emergency department. I agree with the clinical impression, plan, and disposition. (HEATHER WYLIE DO) PAKO PHILLIPS APRN Feb 13, 2021 17:15 HEATHER WYLIE DO Feb 13, 2021 20:52
[2021-02-13] MEDS: IV NORMAL SALINE 1,000ML 1,000 ML IV ONE (17:28)
[2021-02-13] MEDS: diphenhydrAMINE 50 MG/ML VIAL IVP ONE (17:30)
[2021-02-13] MEDS: KETOROLAC 15 MG/ML VIAL. IVP ONE (17:32)
[2021-02-13] MEDS: PROCHLORPERAZINE 10 MG/2 ML VIAL. IV ONE (17:33)
[2021-02-13 18:01] VITALS: BP 169/79
== END 2021-02-13 18:22 | disposition home or self-care (01) ==
LOC: ER 16:16
DX: G43.909 Migraine, unspecified, not intractable, without status migrainosus (principal); F32.9 Major depressive disorder, single episode, unspecified; I10 Essential (primary) hypertension; Z87.442 Personal history of urinary calculi; Z88.5 Allergy status to narcotic agent
CPT/HCPCS: 96361; 96374; 96375; 99284; J0780; J1200; J1885; J7030

== ENCOUNTER 2021-08-14 00:15 | Emergency (ER) | payer OTHER ==
[~2021-08-14] VITALS: Ht 157.5 cm; Wt 72.0 kg
[~2021-08-14 00:15] MED LIST changes: +DICY20TA PO; -DICY20TA3 PO
--- NOTE | 2021-08-14 00:25 | PHYS DOC ---
Past History Past Medical History: Depression, Hypertension, Kidney Stones Additional Past Medical Histor: migraines Past Surgical History: Hip Replacement, Hysterectomy Additional Past Surgical Histo: knee surgery, right hip revision Smoking: Non-smoker Alcohol Use: None Drug Use: Opiates Adult General Chief Complaint Chief Complaint: HYPERTENSION HPI HPI Patient is a 60-year-old female with a past medical history significant for hypertension who presents to the emergency department with a chief complaint of hypertension. Denies any recent travels, traumas, illnesses, fevers changes in vision, neck pain, chest pain, shortness of breath, abdominal pain, vomiting, dysuria, hematuria, diarrhea or blood in the stool. Denies any known ill contacts. Does state that she has had some urinary frequency and some mild nausea, dull headache. States that she was on blood pressure medicine ~approximately 9 months to 12 months ago for hypertension, and it improved so she stopped taking the blood pressure medicine. Review of Systems Review of Systems Review of systems otherwise unremarkable except noted in HPI Allergies Allergies Allergies Coded Allergies Type Severity Reaction Last Updated Verified morphine Allergy Intermediate Rash 11/02/17 Yes Physical Exam Physical Exam Constitutional: Well developed, well nourished, no acute distress, non-toxic appearance. [] HENT: Normocephalic, atraumatic, bilateral external ears normal, oropharynx moist, Eyes: PERRLA, EOMI, conjunctiva normal, no discharge. [] Neck: Normal range of motion, no stridor. [] Cardiovascular:Heart rate regular rhythm, no murmur [] Lungs & Thorax: No respiratory distress, increased work of breathing or tachypnea Abdomen:no tenderness, Skin: Warm, dry, no erythema, no rash. [] Extremities: no cyanosis, no clubbing, ROM intact, no edema. [] Neurologic: Alert and oriented X 3, grossly normal motor function, grossly normal sensory function, able to sit, stand and walk without issue no focal deficits noted. [] Psychologic: Affect normal, judgement normal, mood normal. [] EKG EKG [] Radiology/Procedures Radiology/Procedures [] Heart Score C/O Chest Pain: No Risk Factors: Risk Factors: DM, Current or recent (<one month) smoker, HTN, HLP, family history of CAD, obesity. Risk Scores: Risk Factors: DM, Current or recent (<one month) smoker, HTN, HLP, family history of CAD, obesity. Course & Med Decision Making Course & Med Decision Making Patient is a 60-year-old female who presents with a chief complaint of hypertension Vital signs notable for hypertension. Physical exam noted above. Patient placed on the monitor with IV access established. Laboratory analysis notable for urinary tract infection. Started on antibiotics in the emergency department. Discussed all findings with patient. Discussed symptom management at home. Advised to follow-up in the morning with primary care physician. Gave return precautions to the ED. Patient grateful, verbalized understanding and agreed with plan of discharge. Dragon Disclaimer Dragon Disclaimer This electronic medical record was generated, in whole or in part, using a voice recognition dictation system. Departure Departure: Impression: Primary Impression: Urinary tract infection Additional Impression: Hypertension Disposition: HOME / SELF CARE / HOMELESS Condition: GOOD Referrals: JENI KUMAR MD (PCP) Patient Instructions: Hypertension, Urinary Tract Infection Additional Instructions: Thank you for coming into the emergency department tonight and allowing us to take care of you. Please read the attached information carefully to go over things we discussed. Please take all your antibiotics as prescribed and until gone. Please drink plenty of fluids. Please follow-up in the morning with your primary care physician to update on your ED visit and set up an appointment for reevaluation and discussion of your UTI and hypertension management. Please come back to the emergency department immediately with new or concerning symptoms as we discussed. Scripts Cephalexin (KEFLEX) 500 Mg Capsule 1 CAP PO TID for UTI for 5 Days, #15 CAP Prov: WANDA MOYER MD 08/14/21 Problem Qualifiers WANDA MOYER MD Aug 14, 2021 00:25
--- NOTE | 2021-08-14 00:50 | RAD ---
XR CHEST 1V Clinical History: Reason: Chest pain, short of air, cardiac workup / Spl. Instructions: / History: Technique: AP view of the chest was obtained at 08/14/2021 12:27 AM. Comparison: None. Findings: The cardiomediastinal silhouette is normal. The pulmonary vasculature is normal. The lungs and pleura l margins are clear. There is old left-sided rib fractures. Impression: No evidence of an acute cardiopulmonary process. Electronically signed by: Gus Jesus III, MD (08/14/2021 12:47 AM) [facility]
[2021-08-14 01:00] LABS: BASO % 1 % (0-3); EOS # 0.7 x10^3/uL (0.0-0.7); EOS % 8 % (0-3); HEMATOCRIT 40.8 % (36.0-47.0); HEMOGLOBIN 13.5 g/dL (12.0-15.5); LYMPH # 3.3 x10^3/uL (1.0-4.8); LYMPH % 39 % (24-48); MEAN CORPUSCULAR HEMOGLOBIN 28 pg (25-35); MEAN CORPUSCULAR HGB CONC 33 g/dL (31-37); MEAN CORPUSCULAR VOLUME 83 fL (79-100); MONO # 0.7 x10^3/uL (0.0-1.1); MONO % 8 % (0-9); NEUT # 3.8 x10^3uL (1.8-7.7); NEUT % 44 % (31-73); PLATELET COUNT 276 x10^3/uL (140-400); RED CELL DISTRIBUTION WIDTH 14.3 % (11.5-14.5); WHITE BLOOD COUNT 8.6 x10^3/uL (4.0-11.0)
[2021-08-14 01:09] LABS: BILIRUBIN,URINE NEG (NEG); CLARITY,URINE HAZY; COLOR,URINE YELLOW; GLUCOSE,URINE NEG (NEG)
[2021-08-14 01:09] LABS: CALCIUM 8.8 mg/dL (8.5-10.1); CREATININE 0.8 mg/dL (0.6-1.0); GFR 72.7; POTASSIUM 4.4 mmol/L (3.5-5.1)
[2021-08-14 01:10] LABS: BACTERIA,URINE MOD /HPF (0-FEW); NITRITE,URINE NEG (NEG); SQUAMOUS EPITHELIAL CELL,UR MOD /LPF; UROBILINOGEN,URINE 0.2 mg/dL (0.2 mg/dL); WBC,URINE >40 /HPF (0-4)
[2021-08-14] MEDS ORDERED: CEPH500C PO (01:40)
[2021-08-14] MEDS ORDERED: CEPHALEXIN 250 MG CAPSULE PO ONE (01:45)
[2021-08-14] MEDS ORDERED: diphenhydrAMINE 50 MG/ML VIAL IVP ONE (01:45)
[2021-08-14] MEDS ORDERED: KETOROLAC 15 MG/ML VIAL. IVP ONE (01:45)
[2021-08-14] MEDS ORDERED: diphenhydrAMINE 50 MG/ML VIAL ONE (01:46)
[2021-08-14] MEDS ORDERED: ONDANSETRON PF 4 MG/2 ML VIAL. IVP ONE (02:00)
--- NOTE | 2021-08-14 02:11 | EKG ---
[address] [address] Test Date: 2021-08-14 Test Time: 00:31:37 Pat Name: REGGIE NGUYEN Department: Room: Gender: F Senior Animator: JANESSA : 1960 Requested By: WANDA MOYER Order Number: [id number] Reading MD: Liborio Perez MD Measurements Intervals [place] Rate: 85 P: 64 DE: 152 QRS: 14 QRSD: 90 T: 26 QT: 394 QTc: 469 Interpretive Statements SINUS RHYTHM Electronically Signed On 08-14-2021 9:23:22 INDUSTRIAL RECRUITER by Liborio Perez MD
[2021-08-14] MEDS ORDERED: diazePAM 5 MG TABLET. PO ONE (02:15)
[2021-08-14 02:18] VITALS: BP 153/91
== END 2021-08-14 02:25 | disposition home or self-care (01) ==
LOC: ER 00:15
DX: N39.0 Urinary tract infection, site not specified (principal); I10 Essential (primary) hypertension; G43.909 Migraine, unspecified, not intractable, without status migrainosus; F32.9 Major depressive disorder, single episode, unspecified; Z87.442 Personal history of urinary calculi; Z88.5 Allergy status to narcotic agent
CPT/HCPCS: 36415; 71045; 80048; 81001; 84484; 85025; 87086; 93005; 96374; 96375; 99285; J1200; J1885; J2405

== ENCOUNTER 2021-11-16 15:52 | Emergency (ER) | payer OTHER ==
[~2021-11-16] VITALS: Ht 157.5 cm; Wt 72.0 kg
[~2021-11-16 15:52] MED LIST changes: +CEPH500C PO
[2021-11-16] MEDS ORDERED: PROCHLORPERAZINE 10 MG/2 ML VIAL. IV ONE (16:15)
[2021-11-16] MEDS ORDERED: IV NORMAL SALINE 1,000ML 1,000 ML IV ONE (16:15)
[2021-11-16] MEDS ORDERED: diphenhydrAMINE 50 MG/ML VIAL IVP ONE (16:15)
[2021-11-16] MEDS ORDERED: KETOROLAC 30 MG/ML VIAL. IVP ONE (16:15)
--- NOTE | 2021-11-16 16:20 | PHYS DOC ---
Past History Past Medical History: Depression, Hypertension, Kidney Stones Additional Past Medical Histor: migraines (PAKO PHILLIPS APRN) Past Surgical History: Hip Replacement, Hysterectomy Additional Past Surgical Histo: knee surgery, right hip revision (PAKO PHILLIPS APRN) Smoking: Non-smoker Alcohol Use: Rarely Drug Use: Opiates (PAKO PHILLIPS APRN) General Adult EDM: Chief Complaint: HYPERTENSION HPI: HPI: Patient is a 61-year-old female who presents to the emergency department today for a headache that started yesterday. She reports this is the worst headache she is ever experienced. She does have a history of migraine headaches but she does not take any medications at home for it. She is reporting nausea with one episode of vomiting and photophobia. Her blood pressure is also elevated in the emergency department. She reports that she has been told previously that she has hypertension but does not take any medications for it. Prior to ER arrival EMS administered 8 mg of Zofran and she received 1 L of lactated Ringer's. Patient denies thunderclap headache, photophobia, chest pain, fevers. (PAKO PHILLIPS APRN) Review of Systems: Review of Systems: Constitutional: see HPI Eyes: see HPI Respiratory: see HPI Cardiovascular: see HPI GI: see HPI Musculoskeletal: Denies neck stiffness Neurologic: see HPI, temporal headache reported (PAKO PHLILIPS APRN) Current Medications: Current Meds: Current Medications Medications (Trade) Dose Ordered Sig/Lev Start Time Stop Time Status Last Admin Dose Admin Diphenhydramine HCl (Benadryl) 25 mg 1X ONCE 11/16/21 16:15 11/16/21 16:16 UNV Ketorolac Tromethamine (Toradol 30mg Vial) 30 mg 1X ONCE 11/16/21 16:15 11/16/21 16:16 UNV Prochlorperazine Edisylate (Compazine) 10 mg 1X ONCE 11/16/21 16:15 11/16/21 16:16 UNV Sodium Chloride 1,000 ml @ 1,000 mls/hr 1X ONCE 11/16/21 16:15 11/16/21 17:14 UNV (PAKO PHILLIPS APRN) Allergies: Allergies: Allergies Coded Allergies Type Severity Reaction Last Updated Verified morphine Allergy Intermediate Rash 11/02/17 Yes (PAKO PHILLIPS APRN) Physical Exam: PE: Constitutional: Well developed, well nourished, no acute distress, non-toxic appearance. [] HENT: Normocephalic, atraumatic, bilateral external ears normal, oropharynx moist, no oral exudates, nose normal. [] Eyes: PERRL,4mm bilaterally, EOMI, conjunctiva normal, no discharge. [] Neck: Normal range of motion, no nucchal rigidity, no tenderness, supple, no stridor. [] Cardiovascular:Heart rate regular rhythm, no murmur [] Lungs & Thorax: Bilateral breath sounds clear to auscultation [] Abdomen: Bowel sounds normal, soft, no tenderness, no masses, no pulsatile masses. [] Skin: Warm, dry, no erythema, no rash. [] Back: No tenderness, normal rom, ambulatory with steady gait Extremities: No tenderness, no cyanosis, no clubbing, ROM intact, no edema. [] Neurologic: Alert and oriented X 3, normal motor function, normal sensory function, no focal deficits noted, no pronator drift, no limb ataxia. [] Psychologic: Affect normal, judgement normal, mood normal. [] (PAKO PHILLIPS APRN) Current Patient Data: Labs: Laboratory Tests Test 11/16/21 16:04 White Blood Count 8.9 x10^3/uL Red Blood Count 4.84 x10^6/uL Hemoglobin 13.3 g/dL Hematocrit 40.1 % Mean Corpuscular Volume 83 fL Mean Corpuscular Hemoglobin 28 pg Mean Corpuscular Hemoglobin Concent 33 g/dL Red Cell Distribution Width 13.6 % Platelet Count 242 x10^3/uL Neutrophils (%) (Auto) 68 % Lymphocytes (%) (Auto) 20 % Monocytes (%) (Auto) 6 % Eosinophils (%) (Auto) 6 % Basophils (%) (Auto) 1 % Neutrophils # (Auto) 6.0 x10^3uL Lymphocytes # (Auto) 1.7 x10^3/uL Monocytes # (Auto) 0.5 x10^3/uL Eosinophils # (Auto) 0.5 x10^3/uL Basophils # (Auto) 0.1 x10^3/uL Sodium Level 138 mmol/L Potassium Level 4.3 mmol/L Chloride Level 102 mmol/L Carbon Dioxide Level 26 mmol/L Anion Gap 10 Blood Urea Nitrogen 14 mg/dL Creatinine 0.7 mg/dL Estimated GFR (Cockcroft-Gault) 84.5 BUN/Creatinine Ratio 20 Glucose Level 93 mg/dL Calcium Level 9.2 mg/dL Total Bilirubin 1.0 mg/dL Aspartate Amino Transf (AST/SGOT) 17 U/L Alanine Aminotransferase (ALT/SGPT) 17 U/L Alkaline Phosphatase 115 U/L Troponin I High Sensitivity 7 ng/L Total Protein 7.0 g/dL Albumin 3.7 g/dL Albumin/Globulin Ratio 1.1 Current Medications Medications (Trade) Dose Ordered Sig/Lev Route PRN Reason Start Time Stop Time Status Last Admin Dose Admin Sodium Chloride 1,000 ml @ 1,000 mls/hr 1X ONCE IV 11/16/21 16:15 11/16/21 17:14 11/16/21 16:15 Ketorolac Tromethamine (Toradol 30mg Vial) 30 mg 1X ONCE IVP 11/16/21 16:15 11/16/21 16:16 DC 11/16/21 16:15 Diphenhydramine HCl (Benadryl) 25 mg 1X ONCE IVP 11/16/21 16:15 11/16/21 16:16 DC 11/16/21 16:15 Prochlorperazine Edisylate (Compazine) 10 mg 1X ONCE IV 11/16/21 16:15 11/16/21 16:16 DC 11/16/21 16:15 (PAKO PHILLIPS APRN) EKG: EKG: [] EKG performed by ER staff at 1627 showssinus rhythm with a rate of 90, no stemi read by Dr. Chapman at 1630 (PAKO PHILLIPS APRN) Radiology/Procedures: Radiology/Procedures: []PROCEDURE: PORTABLE CHEST 1V EXAM: Chest, single view. HISTORY: Hypertension. COMPARISON: 08/14/2021 FINDINGS: A frontal view of the chest is obtained. There is no infiltrate, pleural effusion or pneumothorax. The heart is normal in size. There are incidental healed left rib fractures. IMPRESSION: No acute pulmonary finding. Electronically signed by: Lisa Singh MD (11/16/2021 4:31 PM) [id number] DICTATED AND SIGNED BY: LISA SINGH MD DATE: 11/16/21 1631 CC: JENI KUMAR MD; WANDA CHAPMAN DO; PAKO PHILLIPS APRN ~ PROCEDURE: CT HEAD WO CONTRAST EXAMINATION: CT HEAD/BRAIN WO CLINICAL HISTORY: "worst headache". TECHNIQUE: Serial axial images without IV contrast were obtained from the vertex to the foramen magnum. CT Dose Reduction Employed: One or more of the following individualized dose reduction techniques were utilized for this examination: 1. Automated exposure control 2. Adjustment of the mA and/or kV according to patient size 3. Use of iterative reconstruction technique. COMPARISON: None FINDINGS: Acute Change: No evidence of an acute infarct or other acute parenchymal process. Hemorrhage: No evidence of acute intracranial hemorrhage. Mass Lesion/Mass Effect: No evidence of intracranial mass or extraaxial fluid collection. No significant mass effect. Parenchyma: Parenchyma within normal limits for age. Ventricles: Ventricles within normal limits for age. Paranasal Sinuses and Skull Base: Visualized paranasal sinuses clear. Visualized skull base and soft tissues unremarkable. IMPRESSION: No evidence of acute intracranial abnormality. Electronically signed by: Jose D Stahl DO (11/16/2021 4:31 PM) [facility] DICTATED AND SIGNED BY: JOSE D STAHL DO DATE: 11/16/211626 CC: JENI KUMAR MD; WANDA CHAPMAN DO; PAKO PHILLIPS APRN ~ (PAKO PHILLIPS APRN) Heart Score: C/O Chest Pain: No Risk Factors: Risk Factors: DM, Current or recent (<one month) smoker, HTN, HLP, family history of CAD, obesity. Risk Scores: Score 0 - 3: 2.5% MACE over next 6 weeks - Discharge Home Score 4 - 6: 20.3% MACE over next 6 weeks - Admit for Clinical Observation Score 7 - 10: 72.7% MACE over next 6 weeks - Early Invasive Strategies (PAKO PHILLIPS APRN) Course & Med Decision Making: Course & Med Decision Making Pertinent Labs and Imaging studies reviewed. (See chart for details) Patient resents to the emergency department for headache that started yesterday with nausea and photophobia. Patient reports that this is the worst headache she is ever experienced therefore CT scan of her head was performed. Patient will be treated with migraine cocktail and IV fluids. Patient is hypertensive in the emergency department with a blood pressure of 202/112. She reports that she has a history of hypertension but does not take any medications and has never been prescribed any medications. Blood work was obtained including troponin, EKG and chest x-ray to rule out endorgan damage. Patient's blood work is unremarkable, negative troponin. Patient does not have any evidence of endorgan damage. Chest x-ray shows no acute findings and CT head was negative. Following treatment in the emergency department, patient reports that her headache has resolved. Her blood pressure has improved to 160/90. Patient advised to follow-up with her primary care provider regarding her migraine headaches and her hypertension. I discussed with patient all findings and diagnostic testing as well as the need to follow-up with PCP for further evaluation and treatment or return to the ER if any new or worsening symptoms. Strict return precautions were also discussed at length. Patient voiced understanding and agreement with the plan. Patient is hemodynamically stable at the time of disposition. (PAKO PHILLIPS APRN) Dragon Disclaimer: Dragon Disclaimer: This electronic medical record was generated, in whole or in part, using a voice recognition dictation system. (PAKO PHILLIPS APRN) Departure Departure: Impression: Primary Impression: Migraine Qualified Codes: G43.909 - Migraine, unspecified, not intractable, without status migrainosus Additional Impression: Elevated blood pressure reading Disposition: 01 HOME / SELF CARE / HOMELESS Condition: GOOD Referrals: JENI KUMAR MD (PCP) Patient Instructions: Hypertension, Migraine Headache Additional Instructions: You are seen in the emergency department today for headache. You are likely experiencing a migraine headache. Your work-up in the ER and CT imaging of her head showed no acute findings. At home increase your fluids and rest. Lie down in a dark quiet area. Avoid cell phone use or television use. Take Tylenol and ibuprofen at home for your headache. I would advise you to purchase a blood pressure cuff and monitor your blood pressure twice a day and keep a log book. Please follow-up with your primary care provider tomorrow regarding your ER visit. You will need to discuss your elevated blood pressure reading with your primary care provider see me want to place you on antihypertensive medications. Please return to the emergency department if you develop chest pain, shortness of breath, worsening of your headache, vision changes, speech changes, intractable nausea or vomiting, poor coordination, syncope or any new or worsen ing concerns. Attending Signature I have participated in the care of this patient and I have reviewed and agree with all pertinent clinical information above including history, exam, and recommendations. (WANDA CHAPMAN DO) PAKO PHILLIPS APRN November 16, 2021 16:20 WANDA CHAPMAN DO November 16, 2021 17:31
[2021-11-16 16:26] LABS: BASO # 0.1 x10^3/uL (0.0-0.2); BASO % 1 % (0-3); EOS # 0.5 x10^3/uL (0.0-0.7); EOS % 6 % (0-3); HEMATOCRIT 40.1 % (36.0-47.0); HEMOGLOBIN 13.3 g/dL (12.0-15.5); LYMPH # 1.7 x10^3/uL (1.0-4.8); LYMPH % 20 % (24-48); MEAN CORPUSCULAR HEMOGLOBIN 28 pg (25-35); MEAN CORPUSCULAR HGB CONC 33 g/dL (31-37); MEAN CORPUSCULAR VOLUME 83 fL (79-100); MONO # 0.5 x10^3/uL (0.0-1.1); MONO % 6 % (0-9); NEUT % 68 % (31-73); PLATELET COUNT 242 x10^3/uL (140-400); RED BLOOD COUNT 4.84 x10^6/uL (3.50-5.40); RED CELL DISTRIBUTION WIDTH 13.6 % (11.5-14.5); WHITE BLOOD COUNT 8.9 x10^3/uL (4.0-11.0)
--- NOTE | 2021-11-16 16:34 | RAD ---
EXAM: Chest, single view. HISTORY: Hypertension. COMPARISON: 08/14/2021 FINDINGS: A frontal view of the chest is obtained. There is no infiltrate, pleural effusion or pneumo thorax. The heart is normal in size. There are incidental healed left rib fractures. IMPRESSION: No acute pulmonary finding. Electronically signed by: Lisa Leger MD (11/16/2021 4:31 PM) [id number]
--- NOTE | 2021-11-16 16:34 | RAD ---
EXAMINATION: CT HEAD/BRAIN WO CLINICAL HISTORY: "worst headache". TECHNIQUE: Serial axial images without IV contrast were obtained from the vertex to the foramen magnu m. CT Dose Reduction Employed: One or more of the following individualized dose reduction techniques wer e utilized for this examination: 1. Automated exposure control 2. Adjustment of the mA and/or kV ac cording to patient size 3. Use of iterative reconstruction technique. COMPARISON: None FINDINGS: Acute Change: No evidence of an acute infarct or other acute parenchymal process. Hemorrhage: No evidence of acute intracranial hemorrhage. Mass Lesion/Mass Effect: No evidence of intracranial mass or extraaxial fluid collection. No signific ant mass effect. Parenchyma: Parenchyma within normal limits for age. Ventricles: Ventricles within normal limits for age. Paranasal Sinuses and Skull Base: Visualized paranasal sinuses clear. Visualized skull base and soft tissues unremarkable. IMPRESSION: No evidence of acute intracranial abnormality. Electronically signed by: Jose D Mathias DO (11/16/2021 4:31 PM) [facility]
[2021-11-16 16:39] LABS: CALCIUM 9.2 mg/dL (8.5-10.1); CREATININE 0.7 mg/dL (0.6-1.0); GFR 84.5; POTASSIUM 4.3 mmol/L (3.5-5.1)
[2021-11-16 16:45] LABS: ALBUMIN 3.7 g/dL (3.4-5.0); ALBUMIN/GLOBULIN RATIO 1.1 (1.0-1.7)
[2021-11-16 17:36] VITALS: BP 161/79
== END 2021-11-16 17:36 | disposition home or self-care (01) ==
LOC: ER 15:52
DX: G43.909 Migraine, unspecified, not intractable, without status migrainosus (principal); I10 Essential (primary) hypertension; Z87.442 Personal history of urinary calculi; Z88.5 Allergy status to narcotic agent
CPT/HCPCS: 36415; 70450; 71045; 80053; 84484; 85025; 93005; 96361; 96374; 96375; 99285; J0780; J1200; J1885; J3010; J7030